=== PATIENT | male | born 1950 | race Caucasian/White ===

== ENCOUNTER 2023-07-24 10:42 | Emergency (ER) | payer OTHER, SELFPAY ==
[2023-07-24] VITALS (15 sets, daily range): BP systolic 121–147; BP diastolic 62–85; PULSE 76–102; RESP 26; TEMP 36.8; O2SAT 85–96; BMI 28.2
--- NOTE | 2023-07-24 11:10 | ED.GENADULT ---
HPI - General Adult General Chief complaint: Shortness of Breath/Dyspnea Stated complaint: possible pneumonia Time Seen by Provider: 07/24/23 11:10 History of Present Illness HPI narrative: Patient reports shortness of breath, cough and congestion for one week and gradually worsening. He is out of breath walking 30 feet from triage and sits upright on cot . Sats are 85%. He is placed on 2L NC and comes to 92% after a few minutes. Endorses lightheadedness with activity. Denies COPD history but is a former smoker . 72-year-old man presenting to the emergency department concern shortness of breath. Cough as well. Increasingly short of breath over the last 2 days in particular but noticed this beginning a week maybe even 2 weeks ago. Significant other who accompanies him here today notes that she was his only sick contact recently diagnosed with imaged pneumonia. He is a former smoker he says as of 10 minutes ago; says he just can not smoke ?with this and ?. No known heart disease/heart failure and no weight changes noted. They note a fever recently of 98.8 but acknowledge that the thermometer is ?crappy?. No diagnosis of respiratory disease he says and does not take any medication for this. No pleuritic chest pain but has been experiencing a little lower abdominal discomfort with deep breath. Related Data Previous Rx's Medication Instructions Recorded amoxicillin 875 mg-potassium 1 tab PO BID 9 days #18 tabs 07/24/23 clavulanate 125 mg tablet azithromycin 250 mg tablet See Rx Instructions PO .COMPLEX #6 07/24/23 tabs ipratropium 0.5 mg-albuterol 3 mg 3 ml inhalation Q6H PRN #90 mL 07/24/23 (2.5 mg base)/3 mL nebulization soln Allergies Allergy/AdvReac Type Severity Reaction Status Date / Time No Known Drug Allergies Allergy Verified 07/24/23 10:59 Review of Systems Status of ROS: Reports: 6 or more systems reviewed and unremarkable except as noted in History and below [facility] Social History Smoking Status: Current every day smoker How often do you have a drink containing alcohol: never AUDIT-C Alcohol total score: 0 Non-prescribed substance use: denies use Exam Narrative: Exam Narrative: Pleasant. A little hard of hearing. Skin is warm and dry. No lower extremity edema. Is well-perfused. Breath sounds throughout. No wheeze. Mild coarseness generally to his lung sounds. Heart is distant and in a regular rate and rhythm. Abdomen is soft protuberant abdomen. He is mildly sore to palpation without mass or peritoneal signs in the left lower abdomen. Const: Vital Signs, click to edit/add: Vital Signs - 24 hr 07/24/23 10:59 07/24/23 11:05 07/24/23 11:15 Temperature 98.2 F Pulse Rate 88 Pulse Rate [Pulse Oximeter] 92 Respiratory Rate 26 H Blood Pressure 121/63 Blood Pressure [Ri ght Upper Arm] 147/85 H Pulse Oximetry 85 L 92 89 Oxygen Delivery Me thod Room Air Nasal Cannula Oxygen Flow Rate 2 Documenting provider has reviewed patient's vital signs: yes Course Vital Signs Vital signs: Initial Vital Signs Temperature 98.2 F 07/24/23 10:59 Temperature Source Temporal Artery Scan 07/24/23 10:59 Pulse Rate 92 07/24/23 10:59 Respiratory Rate 26 H 07/24/23 10:59 Blood Pressure 147/85 H 07/24/23 10:59 Blood Pressure Mean 105 07/24/23 10:59 Pulse Oximetry 85 L 07/24/23 10:59 Oxygen Delivery Method Room Air 07/24/23 10:59 Vital Signs Temperature 98.2 F 07/24/23 10:59 Pulse Rate 92 07/24/23 10:59 Respiratory Rate 26 H 07/24/23 10:59 Blood Pressure 147/85 H 07/24/23 10:59 Pulse Oximetry 85 L 07/24/23 10:59 Oxygen Delivery Method Room Air 07/24/23 10:59 Temperature 98.2 F 07/24/23 10:59 Pulse Rate 92 07/24/23 15:30 Respiratory Rate 26 H 07/24/23 10:59 Blood Pressure 145/62 H 07/24/23 12:02 Pulse Oximetry 92 07/24/23 15:30 Oxygen Delivery Method Nasal Cannula 07/24/23 11:05 Oxygen Flow Rate 2 07/24/23 11:05 Medications Administered Medications: Discontinued Medications Generic Name Dose Route Start Last Admin Trade Name Freq PRN Reason Stop Dose Admin Albuterol/Ipratropium 1 neb 07/24/23 12:29 07/24/23 12:37 Iprat-Albut 0.5-2.5 Mg/3 Ml Neb IH 07/24/23 12:30 1 neb ONCE ONE Administration Sodium Chloride 1,000 mls @ 1,000 mls/hr 07/24/23 13:51 07/24/23 15:17 0.9 % Sodium Chloride 1000 Ml IV 07/24/23 14:50 Infused .Q1H ONE Infusion Ceftriaxone Sodium 1 gm/ 100 mls @ 200 mls/hr 07/24/23 15:04 07/24/23 15:54 Sodium Chloride IVPB 07/24/23 15:05 Infused ONCE ONE Infusion Medical Decision Making MDM Narrative Medical decision making narrative: Pending at this time is triple swab. Prior to seeing patient did request chest x-ray. Does not sound like gets regular care. Pending this would do further workup. May need to be hospitalized for oxygen needs. DuoNeb? One-view chest reviewed by me looks like might be some light infiltrate in the right middle lung area. Given nasal cannula oxygen improving oxygen saturations into low 90s. Did try DuoNeb with minimal reported change in symptoms. CRP particularly elevated with normal white count. D-dimer also moderately elevated maybe driven by pneumonia/CRP elevation. I would suspect pneumonia still the issue. Not wheezy really for COPD exacerbation and duo nebs with minimal effect. I think though will need to look further for potential PE. IV contrasted CTA ordered. I did review these images. Over-read by radiology it confirming multifocal infiltrates. No PE. Pulmonary nodule also noted in the right lung base :?1950 Study:?CT-Chest PE 95CC ISOVUE 370-07/24/2023 2:31:28 PM Ordering Physician:VALE Final Report: Indication: Hypoxia, cough and elevated D-dimer Technique: Volumetric multidetector CT images of the chest were obtained after the administration of IV contrast. 95 cc Isovue 370 low osmolar intravenous contrast Comparison: None available. Findings: The thoracic inlet and thyroid gland are unremarkable. The thoracic aorta is nonaneurysmal. There is no central filling defect to suggest pulmonary embolism. There are mildly reactive mediastinal and hilar lymph nodes. There is moderate central bronchial thickening with mucoid impaction of the lajmx-fogclne-wdxv-left lower lobe bronchi. There is mild centrilobular and paraseptal emphysematous change of the upper greater than lower lobes with basilar atelectasis and parenchymal scarring. There is developing dense airspace opacity in the ovlzy-dttimum-zjbx-left lung bases. Demonstration of a 6.8 millimeter pulmonary nodule in the peripheral right lung base seen on series 9, image 33. The partially visualized upper abdominal viscera are within normal limits. The thoracic vertebral body heights remain intact alignment without significant degenerative change or acute osseous abnormality. Impression: Moderate central bronchial thickening with mucoid impaction of the lower lobe bronchi with associated developing airspace opacities in the qwbpb-gifzmqt-kase-left lower lobes commensurate with developing multifocal infiltrates. Did give g of Rocephin in the emergency department and was anticipating admission. Mr. Messer clearly did prefers to go home; I do have concerns of bounce back/worsening. [facility] Ambulated before departure at 88-90% on room air. Anticipating Augmentin and azithromycin outpatient. Will make some DuoNebs available if needed as well. Spouse does have nebulizer. Refresh with our tubing and neb cup use here today. Does have evidence of COPD/emphysema on CT imaging. Needs sooner than later follow-up also for this pulmonary nodule particularly in the setting of smoking. See patient discharge plan for further discussion Lab Data Lab results reviewed: Yes I reviewed the patient's lab results Labs: Lab Results 07/24/23 07/24/23 Range/Units 11:06 12:24 WBC 9.29 (4.50-11.00) K/uL RBC 4.93 (4.30-5.90) m/uL Hgb 13.9 (13.5-17.5) gm/dL Hct 42.7 (37.0-53.0) % MCV 87 (80-100) fL MCH 28 (26-34) pg MCHC 33 (32-36) gm/dL RDW Coeff of Eusebia 14.3 (11.5-15.5) % Plt Count 143 (140-440) K/uL Neut % (Auto) 80.3 H (42.0-72.0) % Lymph % (Auto) 6.8 L (20-44) % [place] % (Auto) 12.7 H (0.0-11.0) % Eos % (Auto) 0.0 (0.0-7.0) % Baso % (Auto) 0.1 (0.0-3.0) % Neut # (Auto) 7.50 H (1.7-7.0) K/uL Lymph # (Auto) 0.60 L (0.90-2.90) K/uL [place] # (Auto) 1.20 H (0.00-0.90) K/UL Eos # (Auto) 0.00 (0.00-0.50) K/uL Baso # (Auto) 0.01 (0.00-0.30) K/uL Abs Immat Gran (auto) 0.01 (0.00-0.30) K/uL Imm/Tot Granulo (auto) 0.1 % D-Dimer Quant (PE/DVT) 1.26 H (0.00-0.50) ug/ml VBG pH 7.362 (7.32-7.43) VBG pCO2 48 (40-50) mmHG VBG pO2 < 30.1 (25-47) mmHG VBG HCO3 27 (21-28) mmol/L Sodium 134 L (135-149) mmol/L Potassium 4.0 (3.6-5.1) mmol/L Chloride 104 (96-114) mmol/L Carbon Dioxide 26 (20-32) mmol/L Anion Gap 4 L (7-15) mEq/L BUN 17 (7-30) mg/dL Creatinine 0.9 (0.5-1.5) mg/dL Estimated Creat Clear 71.13 Estimated GFR 90 ml/min Glucose 106 (60-115) mg/dL Calcium 8.4 (8.4-10.6) mg/dL Total Bilirubin 0.6 (0.1-1.5) mg/dL Direct Bilirubin 0.2 (0.0-0.5) mg/dL AST 23 (12-35) U/L ALT 11 (4-50) U/L Alkaline Phosphatase 72 (40-150) U/L C-Reactive Protein 14.9 H (0.5-1.0) mg/dL NT-Pro-B Natriuret Pep 658 pg/mL Total Protein 7.2 (6.0-8.3) g/dL Albumin 3.9 (3.3-5.0) g/dL Ethyl Alcohol < 0.01 L (0.01-0.03) % SARS-CoV-2 (PCR) Negative SARS-CoV-2 (Negative) Influenza Type A (PCR) Negative PCR FLU A (Negative) Influenza Type B (PCR) Negative PCR FLU B (Negative) RSV (PCR) Negative PCR RSV (Negative) Discharge Plan Discharge Clinical Impression: Community acquired pneumonia, COPD (chronic obstructive pulmonary disease), Pulmonary nodule Patient Disposition: Home w/ Parent or Adult Condition: Stable Additional Instructions: Stay well-hydrated. I would like you to take this nebulizer cup and tubing with you. I would like you to nebulized DuoNebs 3 to 4 times a day over the next 3 days. Please follow-up for further evaluation of your lung function. This would likely involve some graphing of your lung function and some inhaler medication to limit further damage as I anticipate you receiving a COPD diagnosis. Please do what you can to quit smoking. Return for increasing weakness, persistent and increasing shortness of breath, new fever. Prescriptions: New amoxicillin-pot clavulanate 875-125 mg tablet 1 tab PO BID 9 Days Qty: 18 0RF ipratropium-albuterol 0.5 mg-3 mg(2.5 mg base)/3 mL solution for nebulization 3 ml inhalation Q6H PRNQty: 90 0RF azithromycin 250 mg tablet See Rx Instructions .ROUTE .COMPLEX Qty: 6 0RF Rx Instructions: For 250 mg dose pack: take 500 mg today (day 1), then 250 mg for 4 days (days 2-5) Follow Up/Referrals: Provider,Not a Local [Primary Care Provider] - Stand Alone Forms: Skipjump Info Instructions
--- NOTE | 2023-07-24 11:12 | XR_ITS ---
Patient: RASHMI SHEFFIELD Facility:?[facility] Patient ID:?[id number] Site Patient ID:?[id number]. Site :?[id number] Study:?XRay-Chest Portable-07/24/2023 11:34:31 AM Ordering Physician:Checo Nova Final Report: Indication: Dyspnea Comparison: None available. Technique: Single AP view chest Findings: There is hyperinflation and chronic interstitial change. There is questionable airspace opacity within the medial right lung base. The left hemithorax is clear. There is no pneumothorax. The cardiac silhouette is mildly prominent. The bony thorax is grossly intact. Impression: Minimal airspace opacity in the medial right lung base likely representing infiltrate versus atelectasis. Mild chronic interstitial changes. Dictated by Tripp Eubanks MD @ 07/24/2023 12:07:51 PM Signed by:?Tripp Eubanks MD @07/24/2023 12:07:51 PM (Electronic Signature)
--- OUTSIDE RECORDS SUMMARY | 2023-07-24 11:47 | XMS_ITS | Referral Summary ---
Author Name Unknown Organization [facility] Address [address] [place] [address] Care Team Providers Care Pattern Lease Inspector Name Role Phone [facility] Primary Care Provider Allergies No known active allergies Social History Tobacco Use Types Packs/Day Years Used Date Smoking Tobacco: Never Assessed Adolescent Education Answer Date Record ed Getting School Help Needed Not on file 12/27 Sex and Gender Information Value Date Recorded Sex Assigned at Not on file Gender Identity Not on file Sexual Orientation Not on file Last Filed Vital Signs Vital Sign Reading Time Taken Comments Blood Pressure 130/77 01/02/2022 12:00 PM CDT Pulse 64 01/02/2022 12:00 PM CDT Temperature 36.8 ??C (98.3 ??F) 01/02/2022 9:35 AM CD T Respiratory Rate 16 01/02/2022 9:35 AM CDT Oxygen Saturation 93% 01/02/2022 11:57 AM CDT Inhaled Oxygen Concentration - - Weight - - Height - - Body Mass Index - - Plan of Treatment Not on file Procedures Procedure Name Priority Date/Time Associated Diagnosis Comments BASIC METABOLIC PANEL STAT 01/02/2022 9:53 AM CDT from Last 3 Months or Most Recently Relevant to Health Maintenance Results * (ABNORMAL) Basic metabolic panel (01/02/2022 9:53 AM CDT) Sodium 137 136 - 145 mmol/L 01/02/2022 10:24 AM CDT LABORATORY Potassium 4.3 3.4 - 5.3 mmol/L 01/02/2022 10:24 AM CDT LABORATORY Chloride 101 98 - 107 mmol/L 01/02/2022 10:24 AM CDT LABORATORY Carbon Dioxide (CO2) 27 22 - 29 mmol/L 01/02/2022 10:24 AM CDT LABORATORY Anion Gap 9 7 - 15 mmol/L 01/02/2022 10:24 AM CDT LABORATORY Urea Nitrogen 14.9 8.0 - 23.0 mg/dL 01/02/2022 10:24 AM CDT LABORATORY Creatinine 1.11 0.67 - 1.17 mg/dL 01/02/2022 10:24 AM CDT LABORATORY Calcium 9.5 8.8 - 10.2 mg/dL 01/02/2022 10:24 AM CDT LABORATORY Glucose 120(H) 70 - 99 mg/dL 01/02/2022 10:24 AM CDT LABORATORY GFR Estimate 70 >60 mL/min/1.7 3m2 01/02/2022 10:24 AM CDT LABORATORY Comment:Effective March 072020 eGFRcr in adults is calculated using the 2020 CKD-EPI creatinine equation which includes age and gender (Fer et al., NEJM, DOI: 10.1056/FYHEqf8560130) Blood STRUCTURE OF RIGHT UPPER LIMB / Unknown Venipuncture / Unknown 01/02/2022 9:53 AM CDT 01/02/2022 10:04 AM CDT Alan Gimenez MD LAB - BLOOD ORDER [facility] [address] Lab (1st floor, no room number) [place] [address], [facility] [phone] from Last 3 Months or Most Recently Relevant to Health Maintenance Care Teams Pattern Lease Inspector Relationship Specialty Start Date End Date [facility], [facility] [address] [place] [address] PCP - General 01/02/22
--- OUTSIDE RECORDS SUMMARY | 2023-07-24 11:47 | XMS_ITS | Clinical Summary ---
Author Name Unknown Organization Media Address [id number] [place] [address] Care Team Providers Care Web Specialist Name Role Phone [facility] Primary Care Provider Allergies No known active [...] Mass Index - - Plan of Treatment Health Maintenance Due Date Last Done Comments ADVANCE CARE PLANNING 1950 ANNUAL REVIEW OF HM ORDERS 1948 CT COLONOGRAPHY 1950 FIT 1950 FLEX SIG 1950 sDNA (Cologuard) 1950 COLONOSCOPY 1958 COLORECTAL CANCER SCREENING 1958 HEPATITIS C SCREENING 1966 LIPID 1988 RSV VACCINE ( & 60+) (1 - 1-dose 60+ series) 2008 FALL RISK ASSESSMENT 2013 MEDICARE ANNUAL WELLNESS VISIT 2013 ZOSTER IMMUNIZATION (3 of 3) 01/21/2022 11/26/2021, 01/23/2012 COVID-19 Vaccine (2 - season) 2022 05/29/2021 INFLUENZA VACCINE (#1) 2022 6, 12/15/2012, 01/23/2012, Additional history exists PHQ-2 (once per calendar year) 2023 GLUCOSE 01/02/2025 01/02/2022, 01/02/2022 DTAP/TDAP/TD IMMUNIZATION (4 - Td or Tdap) 09/29/2027 09/28/2017, 08/06/2016, 02/01/2007 Pneumococcal Vaccine: 65+ Years Completed 08/07/2017, 08/06/2016, 03/07/2010 HPV IMMUNIZATION Aged Out No longer e ligible based on patient's age to complete this topic IPV IMMUNIZATION Aged Out No longer e ligible based on patient's age to complete this topic MENINGITIS IMMUNIZATION Aged Out No l onger eligible based on patient's age to complete this topic RSV MONOCLONAL ANTIBODY Aged Out No l onger eligible based on patient's age to complete this topic Procedures Procedure Name Priority Date/Time Associated Diagnosis Comments BASIC METABOLIC PANEL STAT 01/02/2022 9:53 AM CDT from Last 3 Months or Most Recently Relevant to Health Maintenance Results * (ABNORMAL) Basic metabolic panel (01/02/2022 9:53 AM CDT) Sodium 137 136 - 145 mmol/L 01/02/2022 10:24 AM CDT LABORATORY Potassium 4.3 3.4 - 5.3 mmol/L 01/02/2022 10:24 AM CDT [facility] Chloride 101 98 - 107 mmol/L 01/02/2022 10:24 AM CDT [facility] Carbon Dioxide (CO2) 27 22 - 29 mmol/L 01/02/2022 10:24 AM CDT [facility] Anion Gap 9 7 - 15 mmol/L 01/02/2022 10:24 AM CDT [facility] Urea Nitrogen 14.9 8.0 - 23.0 mg/dL 01/02/2022 10:24 AM CDT [facility] Creatinine 1.11 0.67 - 1.17 mg/dL 01/02/2022 10:24 AM CDT [facility] Calcium 9.5 8.8 - 10.2 mg/dL 01/02/2022 10:24 AM CDT LABORATORY Glucose 120(H) 70 - 99 mg/dL 01/02/2022 10:24 AM CDT LABORATORY GFR Estimate 70 >60 mL/min/1.7 3m2 01/02/2022 10:24 AM CDT LABORATORY Comment:Effective March 072020 eGFRcr in adults is calculated using the 2020 CKD-EPI creatinine equation which includes age and gender (Fer et al., NEJ, DOI: 10.1056/TBXFsd2328353) Blood STRUCTURE OF RIGHT UPPER LIMB / Unknown Venipuncture / Unknown 01/02/2022 9:53 AM CDT 01/02/2022 10:04 AM CDT Alan Gimenez MD LAB - BLOOD ORDER [facility] Acute [facility] Lab [address] Lab (1st floor, no room number) [place] [address] [phone] from Last 3 Months or Most Recently Relevant to Health Maintenance Care Teams Web Specialist Relationship Specialty Start Date End Date [facility], [place] [address] PCP - General 01/02/22
--- OUTSIDE RECORDS SUMMARY | 2023-07-24 11:47 | XMS_ITS | Clinical Summary ---
Author Name Unknown Organization [facility] Address [place], [place] [address] Care Team Providers Care [employer] Name Role Phone Pcp, No Primary Care Provider Unavailabl e Allergies No known active allergies Medications Medication Sig Dispensed Refills Start Date End Date Status ASPIRIN 81 MG TAB, DELAYED RELEASE take 1 tablet (81mg) by oral route once daily 0 06/25/2005 Active LIPITOR 80 MG TAB take 1 tablet (80mg) by oral route once daily 30 5 09/23/2005 Active DYAZIDE 37.5 MG-25 MG CAP take 1 capsule by oral route once daily 0 05/08/2006 Active FISH OIL 1,000 MG-300 MG CAP 1 cap daily 0 05/18/2006 Active FOLIC ACID 1 MG TAB 2 tabs daily 0 05/18/2006 Act sepideh VITAMIN C 250 MG TAB 1 tab daily 0 05/18/2006 Active PLETAL 100 MG TABIndications:Ethel pheral vascular disease, unspecified (HC) Take 1 tablet by mouth 2 times a day 60 12 09/22/2006 Active ZETIA 10 MG TAB take 1 tablet (10 mg) by oral route once daily 0 11/05/2006 Active durable medical equipment (DME)Indications:Pe ripheral vascular disease (HC),Type 2 diabetes mellitus with complication, unspecified whether jail insulin use,PAD (peripheral artery disease) (HC) Extra depth diabetic shoes, 3 pair tri layer accommodative inserts 1 Each 01/28/2018 Active metFORMIN (GLUCOPHAGE) 1,000 mg tablet TAKE ONE-HALF TABLET BY MOUTH AT BEDTIME FOR ELEVATED FASTING GLUCOSE -TAKE WITH FOOD 12/18/2020 Active buPROPion (WELLBUTRIN XL) 300 mg Extended-Release tablet TAKE ONE TABLET BY MOUTH EVERY MORNING FOR MOOD. *NEW DOSE* 12/18/2020 Active rosuvastatin (CRESTOR) 40 mg tablet TAKE ONE-HALF TABLET BY MOUTH EVERY DAY FOR CHOLESTEROL (DO NOT CONVERT) 10/12/2020 Active potassium chloride (KLOR-CON 10; K-TAB) 10 mEq Controlled-Release tablet Take 10 mEq by mouth once daily. 06/26/2020 Active calcium carbonate-vitamin D 250 mg-3.125 mcg (125 unit) tab Take 1 Tablet by mouth once daily with a meal. 11/26/2020 Active mirtazapine (REMERON) 30 mg tablet Take 30 mg by mouth at bedtime. 12/18/2020 Active vit C,J-Ib-vuaxz-lutein -zeaxan (PreserVision AREDS-2) capsule Take 1 Tablet by mouth once daily. 11/15/2020 Active Active Problems Problem Noted Date Diagnosed Date Bilateral pseudophakia 04/13/2023 Posttraumatic stress disorder 06/03/2021 Nicotine dependence 06/03/2021 Major depressive disorder 06/03/2021 Diabetic neuropathy 06/03/2021 Abdominal aortic aneurysm without rupture 2021 Overview: Nov 09, 2020 Entered By: SHAYY COHEN Comment: 3.5cm AAA in 2020, increased from 3.2cm over 7yrs, needs surveillance imaging in 2023 Nonexudative age-related macular degeneration Hypertension 06/03/2021 Myopia of both eyes with astigmatism and presbyo martha 04/30/2021 Onychomycosis 01/28/2018 Peripheral vascular disease 01/28/2018 Overview: Aug 02, 2007 Entered By: HOLA EATON Comment: R iliac stent x 2006 [facility] Dr[address] [place] 2020 Entered By: CATHERINE ESTRELLA Comment: 04/20: Balloon angioplasty L EIA, profunda, SFAJul 2020 Entered By: CATHERINE ESTRELLA Comment: 2013: L SFA angioplasty, left TRACY stent, R TRACY stent Type 2 diabetes mellitus with complication 01/28 Coronary atherosclerosis of unspecified type of vessel, [place] or graft 05/18/2006 Overview: Coronary angiogram in 10/2004. Mild disease. Peripheral vascular disease, unspecified 005 Overview: Lower Ext Angiogram in 2004 Severe dis in bilaterl femoral areas CHEST PAIN 03/15/2001 Hyperlipidemia 03/15/2001 ROTATOR CUFF SPRAIN 07/22/2000 TOBACCO USE 06/24/2000 Immunizations Name Administration Dates Next Due Influenza Virus, Unspecified 12/15/2012, 01/23/2012,01/15/2011,2009,01/12/2009,03/14/2008,02/01/2007 Influenza, High-dose Inactivated 01/29/2016 Pneumococcal Poly,23-Valent (Pneumovax) 08/07/2017 Pneumococcal conj 13-Valent (Prevnar 13) 08/06/2016 Pneumococcal, Unspecified 03/07/2010 TD, UNSPECIFIED 02/01/2007 Tdap 09/28/2017,08/06/2016 Zoster (Zostavax-ZVL, live) 01/23/2012 Family History Medical History Relation Name Comments Diabetes Mother Other Mother glaucoma Genetic Other mother passed a way with congestive heart failure ~uncle was in earlier 60's when had first [place] ~father 2 years ago with emphysema ~mother-blindness Relation Name Status Comments Mother Other Social History Tobacco Use Types Packs/Day Years Used Date Smoking Tobacco: Every Day Cigarettes Smokeless Tobacco: Never Tobacco Cessation:Ready to Q uit: Yes; Counseling Given: Yes Alcohol Use Standard Drinks/Week Comments No 0 (1 standard drink = 0.6 oz pur e alcohol) Social Connections Answer Date Recorded Frequency of Communication with Friends and Fami ly Not on file 06/03/2021 Financial Resource Strain Answer Date R ecorded Difficulty of Paying Living Expenses Not on file 06/03/2021 Difficulty of Paying Living Expenses Not on file 06/03/2021 Sex and Gender Information Value Date Recorded Sex Assigned at Not on file Gender Identity Not on file Sexual Orientation Not on file Obstetrics History Last Filed Vital Signs Vital Sign Reading Time Taken Comments Blood Pressure 110/60 06/03/2021 11:00 AM FACILITY SPECIALIST Pulse 74 06/03/2021 11:00 AM FACILITY SPECIALIST Temperature 36.9 ??C (98.5 ??F) 11/06/2006 8:00 AM CD T Respiratory Rate 16 11/06/2006 8:00 AM CDT Oxygen Saturation 97% 11/06/2006 8:00 AM CDT Inhaled Oxygen Concentration - - Weight 94.3 kg (208 lb) 06/03/2021 11:00 AM FACILITY SPECIALIST Height 184.5 cm (6' 0.64) 06/03/2021 11:00 AM C Body Mass Index 27.72 06/03/2021 11:00 AM FACILITY SPECIALIST Plan of Treatment Upcoming Encounters Date Type Department Care Team (Late st Contact Info) Description 10/12/2023 11:40 AM CDT Office Visit [facility] [id number] [place], [place] [phone] [place] [address] [address] [place], [place] [phone] Health Maintenance Due Date Last Done Comments Depression screening for age 12+ 1960 Hepatitis C screening for ag e 18-79 1966 Colonoscopy through age 75 1993 Lipids for age 45-75 04/30/2011 04/30/2006, 01/20/2005, 08/14/2004, Additional history exists Zoster (shingles) series for age 50+ (2 of 3) 03/19/2012 01/23/2012 Medicare Wellness for age 65+ 2013 BMI (ht and wt on same day) for age 18+ 06/03/2022 06/03/2021 COVID-19 vaccine series ( season) 2022 05/29/2021 Influenza for age 65+ 12/06/2023 01/29/2016 , 12/15/2012, 01/23/2012, Additional history exists Tetanus booster 09/29/2027 09/28/2017, 0506/2016, 02/01/2007 Pneumococcal series for age 65+ Completed 08/07/2017, 08/06/2016, 03/07/2010 Tdap Completed 09/28/2017, 08/06/2016 Procedures Procedure Name Priority Date/Time Associated Diagnosis Comments LIPID PANEL Routine 04/30/2006 8:37 AM FACILITY SPECIALIST Peripheral Vascular Disease (Hc) from Last 3 Months or Most Recently Relevant to Health Maintenance Results * LIPID PANEL (04/30/2006 8:37 AM FACILITY SPECIALIST) CHOLESTEROL,TOTAL 189 110 - 199 mg/dL [facility] TRIGLYCERIDES 57 40 - 149 mg/dL [facility] HDL CHOLESTEROL 60 >40 mg/dL [facility] CHOL/HDL RATIO 3.[address] [facility] LDL CHOLESTEROL 118 <131 mg/dL [facility] PATIENT STATUS Fasting [facility] Blood specimen (specimen) BLOOD SPECIMEN / Unknown 04/30/2006 8:37 AM FACILITY SPECIALIST 04/30/2006 8:36 AM FACILITY SPECIALIST Manuel Jensen MD CHEMISTRY [facility] INTERNAL ZIP [id number] [place] [id number] from Last 3 Months or Most Recently Relevant to Health Maintenance Advance Directives * Full Code (Latest Code Status on File) Date Activated Date Inactivated Comments 11/05/2006 9:40 AM 11/06/2006 2:12 PM * Full Code Date Activated Date Inactivated Comments 11/05/2006 5:59 AM 11/05/2006 9:40 AM Care Teams [employer] Relationship Specialty Start Date End Date Pcp, No . PCP - General 01/18/18
[2023-07-24 11:48] LABS: PCR FLU A Negative PCR FLU A (Negative); PCR FLU B Negative PCR FLU B (Negative); PCR RSV Negative PCR RSV (Negative); SARS PCR* Negative SARS-CoV-2 (Negative)
--- OUTSIDE RECORDS SUMMARY | 2023-07-24 11:48 | XMS_ITS | Encounter Summary ---
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 72 in [182.9 cm] (11/26/2021 12:47) BMI: 27.9 Pain: 3 (02/18/2022 09:10) Medications: Active Outpatient Medications (including Supplies): BUPROPION HCL 300MG 24HR SA TAB TAKE ONE TABLET BY MOUTH ACTIVE EVERY MORNING FOR MOOD CALCIUM 250MG/VITAMIN D 125 UNT TAB TAKE 2 TABLETS BY ACTIVE MOUTH THREE TIMES A DAY FOR BONES MIRTAZAPINE 30MG TAB TAKE ONE AND ONE-HALF TABLETS BY ACTIVE MOUTH AT BEDTIME FOR DEPRESSION MULTIVIT/OPHTH AREDS2/LUTE/ZEAX CAP/TAB TAKE 1 CAP/TAB BY ACTIVE MOUTH TWICE A DAY FOR MACULAR DEGENERATION ROSUVASTATIN CA 40MG TAB TAKE ONE-HALF TABLET BY MOUTH ACTIVE (S) EVERY DAY FOR CHOLESTEROL (DO NOT CONVERT) Non-VA ASPIRIN 81MG EC TAB 81 MG MOUTH DAILY ACTIVE Non-VA FISH OIL 1000MG (500MG DHA/EPA) CAP 1 GM MOUTH ACTIVE EVERY DAY Non-VA FOLIC ACID 1MG TAB 1 MG MOUTH TWICE A DAY ACTIVE Patient verified his/her medication list. Patient reports taking current medication list as prescribed: Yes Side effects: Yes New Non-VA/Over the Counter/Herbal Medications: None Patient instructed to keep a copy of his/her medication list and to protect this personal and private medical information. Alcohol use: No Alcohol Use Screen (AUDIT-C): Alcohol Screen: SCREEN FOR ALCOHOL (AUDIT-C) An alcohol screening test (AUDIT-C) was negative (score=0). 1. How often did you have a drink containing alcohol in the past year? Never 2. How many drinks containing alcohol did you have on a typical day when you were drinking in the past year? Response not required due to responses to other questions. 3. How often did you have six or more drinks on one occasion in the past year? Response not required due to responses to other questions. Nursing Annual Screening: Fall History Screen During the past 12 months, have you had any falls? Patient does not report any falls in the past 12 months. MEDICATIONS: Patient is on one of the following medication classes: Antihypertensives, Antidepressants, Antipsychotics, Diuretics, or Controlled substance medication used for pain. FALL RISK ADVICE: Fall Risk Advice provided. Handout entitled Fall Prevention At Home reviewed and given to patient and/or significant other. Script Talk Screen Are you able to read your prescription bottles with your glasses, magnifiers or other aids? Yes or patient not taking any prescriptions. Skin Screen Patient reports any current pressure ulcers, a history of pressure ulcers, or a wound from a medical associate or Patient is bed-confined or a wheelchair-user or Patient requires assistance to transfer/change position No, Skin Screen is Negative Home Abuse/Violence Screen Is your home free of abuse and violence? Yes Outpatient Nutrition Screen Body Mass Index (BMI)= 27.9 [place]: Collection DT Specimen Test Name Result Units Ref Range 07/11/2021 09:53 BLOOD HEMOGLOBIN A1C 6.1 H % 4.0 - 6.0 [place] Hgb A1C: No data available [place] Hgb A1C: No data available Point of Care Hgb A1C: POC HGB A1C____ Is patient's BMI less than 18.5? No Does patient have swallowing, coughing, or chewing problems affecting oral intake? No Has patient experienced unplanned weight loss or gain greater than 10 pounds over the last 2 months? No Is patient's Hgb A1C (Glycosylated Hemoglobin) greater than 9.5? Information not available Is patient receiving Total Parenteral Nutrition (TPN) or Tube Feedings? No Patient Health Education Screen BARRIERS/SPECIAL NEEDS: No barriers identified PREFERRED STYLE OF LEARNING: Watching something Listening Reading Client Assistive Service (EDITH) Screen Does the patient require assistance with outpatient visit? Cecilia /umesh/ SHANA CHADWICK GENETIC COORDINATOR STAFF NURSE Signed: 12/16/2022 13:03 SHANA CHADWICK [facility]
--- OUTSIDE RECORDS SUMMARY | 2023-07-24 11:48 | XMS_ITS | Encounter Summary ---
Author Name [facility] Affairs Organization [facility] Address [address] [place] [address] Support Name Relationship Address Phone OSIRIS SHEFFIELDHUYEN Next of Kin [address] [place] [address] RACHAEL SHEFFIELD Emergency Contact [address] [place] [address] Insurance Providers: All historical and [...] Policy Yancey MEDICARE (WNR) MEDICARE (M) PART B May 07, 2009 PART B [id number] [phone] RASHMI SHEFFIELD PATIENT MEDICARE (WNR) MEDICARE (M) PART A May 07, 2009 PART A [id number] [phone] RASHMI SHEFFIELD PATIENT Selected Encounter This section includes the information on record at [place] for the Encounter. Date/Time Encounter Type Encounter Description Reason Provider Source May 28, 2023 09:30 AM MTMS BY PHARM JONNATHAN 15 MIN TELEPHONE PRIMARY CARE ICD-10-CM F17.210 Nicotine dependence, cigarettes, uncomplicated ALVARADO CARLSON IHFaizan Encounter Template Text not used by [place] Assessments - Encounter Diagnoses This section includes the primary and secondary diagnoses documented for the Encounter. Date/Time Primary/Secondary Diagnosis Diagnosis Name Provider Source May 28, 2023 09:30 AM PRIMARY Nicotine dependence, cigarettes, uncomplicated STEFFANIE PATEL [facility] Social History: Smoking Status (Most current) and Tobacco Use (All prior to encounter date) This section includes the most current, and the historical, smoking and tobacco- related health factors from the [place] facility where the Encounter took place. Current Smoking Status This section includes the most current smoking, or tobacco-related health factor, from the [place] facility where the Encounter took place. Date/Time Current Smoking Status Comment Addy ity Jun 09, 2022 01:00 PM VA-TOBACCO USE [address] [facility] Tobacco Use History This section includes a history of the smoking, or tobacco-related health factors, that were collected on or before the date of the Encounter. The data comes from the [place] facility where the Encounter took place. Date/Time Smoking Status/Tobac co Use Comment Facility Jun 09, 2022 01:00 PM VA-TOBACCO USE ADVICE [facility] Jun 09, 2022 01:00 PM VA-TOBACCO USE PAPER STRIPPER NO [facility] Jun 09, 2022 01:00 PM VA-TOBACCO USE MED NO [facility] Jun 09, 2022 01:00 PM VA-TOBACCO USE [place] [address] [facility] Jun 09, 2022 01:00 PM VA-TOBACCO USER EVERY DAY [facility] Jul 15, 2021 01:30 PM VA-TOBACCO USE < [address] [facility] Jul 15, 2021 01:30 PM VA-TOBACCO USE ADVICE [facility] Jul 15, 2021 01:30 PM VA-TOBACCO USE PAPER STRIPPER NO [facility] Jul 15, 2021 01:30 PM VA-TOBACCO USE MED NO [facility] Jul 15, 2021 01:30 PM VA-TOBACCO USE [place] [address] [facility] Jul 15, 2021 01:30 PM VA-TOBACCO USER EVERY DAY [facility] Dec 14, 2019 01:15 PM VA-TOBACCO FORMER USER [facility] Dec 14, 2019 01:15 PM VA-TOBACCO QUIT < [address] [facility] Dec 15, 2017 02:59 PM VA-TOBACCO DOESNT USE [place] [address] [facility] Dec 15, 2017 02:59 PM VA-TOBACCO USE > 1 [address]ESS THAN [address] [facility] Dec 15, 2017 02:59 PM VA-TOBACCO USE ADVICE [facility] Dec 15, 2017 02:59 PM VA-TOBACCO USE COU NSEL YES plan that he will discuss tob cessation therapy with therapist today [facility] Dec 15, 2017 02:59 PM VA-TOBACCO USE MED NO [facility] Dec 15, 2017 02:59 PM VA-TOBACCO USER EVERY DAY [facility] Jun 30, 2017 09:17 AM CURRENT TOBACCO USER [facility] Jun 05, 2016 02:51 PM CURRENT TOBACCO USER [facility] Dec 07, 2013 02:06 PM CURRENT TOBACCO USER [facility] Dec 15, 2012 02:15 PM CURRENT TOBACCO USER [facility] Jan 23, 2012 01:13 PM CURRENT TOBACCO USER [facility] Jan 15, 2011 09:09 AM CURRENT TOBACCO USER [facility] Jan 17, 2010 02:05 PM CURRENT TOBACCO USER [facility] Jan 12, 2009 11:39 AM CURRENT TOBACCO USER [facility] Mar 14, 2008 03:02 PM CURRENT TOBACCO USER [facility] Apr 19, 2007 07:41 AM CURRENT TOBACCO USER [facility] Jul 14, 2006 09:11 AM CURRENT TOBACCO USER [facility] Advance Directives: All historical and current Section Date Range: From patient's date of to the date document was created. This section includes ALL of a patient's completed or amended [place] Advance and Rescinded Directives. The entries below indicate that a directive exists for the patient, but an actual copy is not included with this document. The data comes from all [place] facilities. Date Advance Directives Provider Source Feb 01, 2007 ADVANCE DIRECTIVE JOHN MARIEE [facility] Encounter Notes: All associated encounter notes This section contains the clinical notes associated to the Encounter. Date/Time Encounter Note(s) Provider Source May 28, 2023 01:12 PM SMOKING CESSATION GROUP COUNSELING NOTE: LOCAL TITLE: TOBACCO TREATMENT TEAM NOTE STANDARD TITLE: SMOKING CESSATION GROUP COUNSELING NOTE DATE OF NOTE: MAY 28, 2023@13:12 ENTRY DATE: MAY 28, 2023@13:12:49 AUTHOR: JEANNE PATEL COSIGNER: URGENCY: STATUS: COMPLETED TOBACCO TREATMENT TEAM NOTE Has ADDENDA Visit Type: Phone Patient is a 72 year old Hartley contacted for tobacco cessation follow-up. Medical history is notable for CAD/PAD w/ significant claudication, T2DM (diet controlled), depression, HTN. Subjective reports that he is doing good. He states that he has been successful in smoking cessation and has not smoked in a month. He states that since he has not needed it, he stopped taking varenicline two weeks ago. He further states that he still has some and will take it again if he feels that he needs to. He reports experiencing some cravings but has not noticed withdrawal symptoms. Tobacco use Report: - Current tobacco use: 6-7 cigarettes per day - Duration of use: Since teenage years - Previous quit attempts: o NRT patches o NRT lozenges o Bupropion (current for depression) o Varenicline (nausea) - Patient Goals: o Goal to quit smoking for health benefits o Not ready to set a quit date - Barriers to Cessation: o Unsuccessful prior quit attempts o Enjoys smoking/finds relaxing - Triggers to use: o First thing in the morning; usually has a cigarette within 15 minutes of waking up o Driving - Motivators: o Health benefits, particularly cardiovascular/PAD concerns - For Motivation: On a scale of 0-10, where 0 is not at all motivated and 10 is extremely motivated, how motivated are you to quit using tobacco now (or remain tobacco free)? 5/10; notes he likes to smoke, but knows he should quit for his health. - For Confidence: On a scale of 0-10, where 0 is not at all confident and 10 is extremely confident, how confident are you that you can quit using tobacco now (or remain tobacco free)? 5/10; notes history of unsuccessful quit attempts. - Additional Items: o Caffeine use: Coffee in AM; reviewed interaction between tobacco hydrocarbons and caffeine o Alcohol use: None, AUDIT-C of 0 o Seizure history: No o Dentition concerns: Has dentures MEDICATIONS: Active Outpatient Medications (including Supplies): Active Outpatient Medications Status 1) BUPROPION HCL 150MG 24HR SA TAB TAKE THREE TABLETS BY ACTIVE MOUTH EVERY MORNING FOR MOOD FOR MOOD 2) HYDROPHILIC (EQV EUCERIN) TOP CREAM APPLY TO AREAS OF ACTIVE DRY SKIN TOPICALLY EVERY DAY FOR MOISTURIZER IDEALLY WITHIN 3 MINUTES AFTER BATH OR SHOWER. 3) MIRTAZAPINE 30MG TAB TAKE ONE AND ONE-HALF TABLETS BY ACTIVE MOUTH AT BEDTIME FOR DEPRESSION 4) MULTIVIT/OPHTH AREDS2/LUTE/ZEAX CAP/TAB TAKE 1 ACTIVE CAP/TAB BY MOUTH TWICE A DAY FOR MACULAR DEGENERATION 5) NIACIN (SLO-NIACIN) 500MG TAB,SA TAKE ONE TABLET BY ACTIVE MOUTH EVERY DAY FOR HIGH CHOLESTEROL 6) ROSUVASTATIN CA 40MG TAB TAKE ONE-HALF TABLET BY ACTIVE MOUTH EVERY DAY FOR CHOLESTEROL (DO NOT CONVERT) 7) TRIAMCINOLONE ACETONIDE 0.1% CREAM APPLY THIN LAYER ACTIVE TOPICALLY TWICE A DAY FOR RASH FOR 2 TO 4 WEEKS UNTIL IMPROVED 8) VARENICLINE 1MG TAB TAKE ONE-HALF TABLET BY MOUTH ACTIVE EVERY DAY FOR 3 DAYS, THEN TAKE ONE-HALF TABLET TWICE A DAY FOR 4 DAYS, THEN TAKE ONE TABLET TWICE A DAY TO QUIT TOBACCO Active Non-VA Medications Status 1) Non-VA ASPIRIN 81MG EC TAB 81 MG MOUTH DAILY ACTIVE 2) Non-VA FISH OIL 1000MG (500MG DHA/EPA) CAP 1 GM MOUTH ACTIVE EVERY DAY 3) Non-VA FOLIC ACID 1MG TAB 1 MG MOUTH TWICE A DAY ACTIVE 11 Total Medications - Disease specific medication reconciliation completed today Vitals: Temperature: 97.7 F [36.5 C] (02/19/2023 12:54) Blood Pressure: 128/60 (02/19/2023 12:54) Pulse: 74 (02/19/2023 12:54) Respiration: 18 (02/19/2023 12:54) Pain: 0 (02/19/2023 12:54) Height: 72 in [182.9 cm] (02/19/2023 12:54) Weight: 208 lb [94.35 kg] (02/19/2023 12:54) BMI: 28.3 LABS: Basic Metabolic Panel SODIUM 139 (02/19/23) POTASSIUM 3.9 (02/19/23) CREATININE 1.0 (02/19/23) UREA NITROGEN 14 (02/19/23) GLUCOSE 104 H (02/19/23) CO2 25 (02/19/23) CHLORIDE 104 (02/19/23) EGFR (11/07) 12/14/20 @ 0921 66 CREATININE EGFR (CKD-EPI) 02/19/23 @ 1209 79 MAGNESIUM 1.8 (02/19/23) Collection DT Specimen Test Name Result Units Ref Range 02/19/2023 12:09 PLASMA CREATININE 1.0 mg/dL 0.7 - 1.2 08/15/2021 10:22 PLASMA CREATININE 1.1 mg/dL 0.7 - 1.2 07/11/2021 09:53 PLASMA CREATININE 1.1 mg/dL 0.7 - 1.2 02/19/2023 12:09 PLASMA .CREAT EGFR(CKD-E 79 Ref: >=60 08/15/2021 10:22 PLASMA .CREAT EGFR(CKD-E 71 Ref: >=60 07/11/2021 09:53 PLASMA .CREAT EGFR(CKD-E 71 Ref: >=60 CHOLESTEROL 179 (02/19/23) MEASURED LDL____ LDL CALCULATION 116 H (02/19/23) HDL 39 L (02/19/23) TRIGLYCERIDE____ Collection DT Spec HGBA1C 02/19/2023 12:09 BLOOD 5.6 07/11/2021 09:53 BLOOD 6.1 H 12/14/2020 09:21 BLOOD 6.1 H ASSESSMENT: #Tobacco Cessation: Hartley has been very successful in his efforts for smoking cessation. Recommended that patient restart varenicline if needed and reach out if he relapses. Patient would like to move forward with further follow-ups at this time. PLAN: ===== - Nothing further at this time. EDUCATION/COUNSELING: - Patient was encouraged to continue current tobacco cessation plan. - Discussed importance of avoiding triggers, using distraction techniques, and rewards of tobacco cessation. - Withdrawal symptoms were reviewed and discussed how to cope with cravings. Time spent: 15 minutes RTC: No further follow-up needed at this time. /umesh/ JEANNE PATEL PGY1 Repair Operator Signed: 05/28/2023 13:32 05/28/2023 ADDENDUM STATUS: COMPLETED The technical writer and editor precepted the above resident for this encounter, retail pharmacy merchandiser phone call not observed. Pertinent history and lab results were verified. Assessment and Plan reflects our discussion. Patient is a 72 yo seen today for tobacco cessation follow-up. See resident note for more subjective/objective information. Follow up: None scheduled at this time Time spent: 15 minutes /umesh/ DOC CARLSON, PharmD, BCPP, NCMP Clinical Pharmacist Practitioner Signed: 05/28/2023 15:[address] [facility]
--- OUTSIDE RECORDS SUMMARY | 2023-07-24 11:48 | XMS_ITS | Encounter Summary ---
Author Name Department of [facility] Organization Department of [facility] Address [address] [place] [address] Support Name Relationship Address Phone SHEFFIELD, KATJULIANA Next of Kin [address], [place] [id number] SHEFFIELD, KATJULIANA Emergency Contact [address] [place] [address] Insurance Providers: All historical and [...] PART A May 07, 2009 PART A [id number] RASHMI SHEFFIELD PATIENT MEDICARE (WNR) MEDICARE (M) PART B May 07, 2009 PART B [id number] RASHMI SHEFFIELD PATIENT Selected Encounter This section includes the information on record at [place] for the Encounter. Date/Time Encounter Type Encounter Description Reason Provider Source Dec 15, 2022 10:14 AM Outpatient Encounter ADMIN PAT ACTIVTIES (MASNONCT) CATHERINE ESTRELLA Faizan Encounter Template Text not used by [place] Plan of Treatment: Future Appointments (+ 6 months) and Future Tests (+/- 45 days) The Plan of Treatment section includes future care activities for the patient from all [place] treatmentfacilities. This section includes future appointments and future orders which are active, pending or scheduled. Future Appointments This section includes appointments that were scheduled to occur 6 months from the date of the Encounter, up to a maximum of 20 appointments. The data comes from all [place] treatment facilities. Appointment Date/Time Appointment Type Appointme nt Facility Name Dec 16, 2022 01:30 PM AMBULATORY [place] [facility] Jan 06, 2023 02:00 PM AMBULATORY - SURGERY [place] [facility] Feb 19, 2023 12:30 PM AM[place]UL[place]ORY - [place]ONE [place] [facility] Feb 19, 2023 01:30 PM AMBULATORY - MEDICINE [place] SALAZAR [facility] Mar 10, 2023 11:00 AM AMBULATORY - NONE [place] [facility] Mar 17, 2023 01:00 PM AMBULATORY - PS[place]IAT[place] [facility] Apr 14, 2023 11:00 AM AM[place]ORY - [place]ONE [place] [facility] May 28, 2023 09:30 AM [facility] Lab Results: +/- 30 days of the encounter This section includes the Chemistry and Hematology Lab Results on record with [place] for the patient. Radiology Reports and Pathology Reports are provided separately, in subsequent sections. Lab Results This section contains the Chemistry/Hematology Results that were resulted 30 days before or 30 daysafter the date of the Encounter. Date/Time Source Result Type Result - Unit Interpretation Reference Range Comment Dec 12, 2022 02:04 PM [facility] POC CREATININE Specimen Type: BLOOD No comment entered. Ordering Provider: CATHERINE ESTRELLA Report Released Date/Time: Dec 12, 2022 02:06 PM Reporting Lab: [facility] [id number] Performing Lab: [facility] [id number] POC CREATININE 1.3 0.6-1.3 Social History: Smoking Status (Most current) and Tobacco Use (All prior to encounter date) This section includes the most current, and the historical, smoking and tobacco- related health factors from the [place] facility where the Encounter took place. Current Smoking Status This section includes the most current smoking, or tobacco-related health factor, from the [facility] where the Encounter took place. Date/Time Current Smoking Status Comment Addy sahu Jun 09, 2022 01:00 PM VA-TOBACCO USER EVERY DAY [facility] Tobacco Use History This section includes a history of the smoking, or tobacco-related health factors, that were collected on or before the date of the Encounter. The data comes from the [place] facility where the Encounter took place. Date/Time Smoking Status/Tobac co Use Comment Facility Jun 09, 2022 01:00 PM VA-TOBACCO USE ADVICE [facility] Jun 09, 2022 01:00 PM VA-TOBACCO USE SENIOR GEOLOGIST NO [facility] Jun 09, 2022 01:00 PM VA-TOBACCO USE MED NO [facility] Jun 09, 2022 01:00 PM VA-TOBACCO USE WI 30 MIN OF WAKEUP [facility] Jun 09, 2022 01:00 PM VA-TOBACCO USER EVERY DAY [facility] Jul 15, 2021 01:30 PM VA-TOBACCO USE < 1 YEAR [facility] Jul 15, 2021 01:30 PM VA-TOBACCO USE ADVICE [facility] Jul 15, 2021 01:30 PM VA-TOBACCO USE SENIOR GEOLOGIST NO [facility] Jul 15, 2021 01:30 PM VA-TOBACCO USE MED NO [facility] Jul 15, 2021 01:30 PM VA-TOBACCO USE WI 30 MIN OF WAKEUP [facility] Jul 15, 2021 01:30 PM VA-TOBACCO USER EVERY DAY [facility] Dec 14, 2019 01:15 PM VA-TOBACCO FORMER USER [facility] Dec 14, 2019 01:15 PM VA-TOBACCO QUIT < 1 YEAR [facility] Dec 15, 2017 02:59 PM VA-TOBACCO DOESNT USE WI 30 MIN WAKEUP [facility] Dec 15, 2017 02:59 PM VA-TOBACCO USE > 1 5 LESS THAN 30 YEARS [facility] Dec 15, 2017 02:59 PM VA-TOBACCO USE ADVICE [facility] Dec 15, 2017 02:59 PM VA-TOBACCO USE COU NSEL YES plan that he will discuss tob cessation therapy with therapist today [facility] Dec 15, 2017 02:59 PM VA-TOBACCO USE MED NO [facility] Dec 15, 2017 02:59 PM VA-TOBACCO USER EVERY DAY [facility] Jun 30, 2017 09:17 AM CURRENT TOBACCO USER [facility] Jun 05, 2016 02:51 PM CURRENT TOBACCO USER [facility] Dec 07, 2013 02:06 PM CURRENT TOBACCO USER [facility] Dec 15, 2012 02:15 PM CURRENT TOBACCO USER [facility] Jan 23, 2012 01:13 PM CURRENT TOBACCO USER [facility] Jan 15, 2011 09:09 AM CURRENT TOBACCO USER [facility] Jan 17, 2010 02:05 PM CURRENT TOBACCO USER [facility] Jan 12, 2009 11:39 AM CURRENT TOBACCO USER [facility] Mar 14, 2008 03:02 PM CURRENT TOBACCO USER [facility] Apr 19, 2007 07:41 AM CURRENT TOBACCO USER [facility] Jul 14, 2006 09:11 AM CURRENT TOBACCO USER [facility] Advance Directives: All historical and current Section Date Range: From patient's date of to the date document was created. This section includes ALL of a patient's completed or amended [place] Advance and Rescinded Directives. The entries below indicate that a directive exists for the patient, but an actual copy is not included with this document. The data comes from all [place] facilities. Date Advance Directives Provider Source Feb 01, 2007 ADVANCE DIRECTIVE JOHN MARIEE WESTLEYMonisha SALAZAR [facility] Radiology Reports: +/- 30 days of the [...] the Encounter. The data comes from all [place] treatment facilities. Date/Time Radiology Report Provider Source Dec 12, 2022 02:09 PM LDCT LUNG CANCER S CREENING: RASHMI SHEFFIELD [id number] -1950 M Exm Date: DEC 12, 2022@14:09 Req Phys: CATHERINE ESTRELLA Pat Loc: [facility] PULM CHART CHECK [facility] (Req' Img Loc: CT IMAGING Service: Unknown (Case [id number] COMPLETE) LDCT LUNG CANCER SCREENING (CT Detailed) CPT:15538 Reason for Study: LDCT f/u LUNG RADS 2B pulm nodule (FOLLOW UP) Clinical History: IS NOT under investigation for COVID-19 or [...] 12, 2022 Date Verified: DEC 12, 2022 Sewer Hand E-Sig:/ES/HEATH HERNANDEZ MD Report: EXAM: LDCT LUNG CANCER SCREENING COMPARISON: CT chest, 12/11/2021 PROTOCOL: Screening protocol, low dose, non-contrast CT chest was performed in accordance with Lung-Rads 2. Additional coronal and sagittal reconstructions. MIP reconstructions [...] Primary Interpreting Staff: HEATH HERNANDEZ MD, RADIOLOGIST (Sewer Hand) /HEATH CRUZ [facility] Dec 12, 2022 02:05 PM CTA RUNOFF (LOWER EXTREMITY ANGIO) (P): RASHMI SHEFFIELD [id number] -1950 M Exm Date: DEC 12, 2022@14:05 Req Phys: KERACALVIN FAN Kandi Loc: [facility] PHONE (Req'g Img Loc: CT IMAGING Service: Unknown (Case [id number] COMPLETE) CTA ABDOMINAL ARTERIES W/ RUNOFF (CT Detailed) CPT:40573 Contrast Media : unspecified contrast media Reason [...] and contact information of the responsible staff pysician below. If not, type in N/A.Same, staff [...] PLASMA ESTIMATED GFR(eGF >60 Ref: >=60 Allergies: (Calvin only) Patient has answered NKA Report Status: Verified Date Reported: DEC 12, 2022 Date Verified: DEC 12, 2022 Sewer Hand E-Sig:/ES/MORALES MÉNDEZ MD Report: ABDOMINAL/PELVIC AORTIC CTA [...] Primary Interpreting Staff: MORALES MÉNDEZ MD, RADIOLOGIST (Sewer Hand) /SRS MORALES MÉNDEZ [facility] Dec 12, 2022 12:32 PM SEGMENTALS/CARLYLE: RASHMI SHEFFIELD MILDRED [id number] -1950 M Exm Date: DEC 12, 2022@12:32 Req Phys: CALVIN COTE Loc: [facility] PHONE (Req'g Img Loc: VASCULAR LAB PROCEDURES Service: Unknown (Case [id number] COMPLETE) SEGMENTALS/CARLYLE (VAS Detailed) CPT:71219 Reason for Study: PAD Clinical History: Please note that this study requires a 30min apt. time. IS NOT under investigation for COVID-19 or is COVID-19 negative Bilateral lower extremity claudication, history of PAD Responsible provider name and phone number to notify for critical findings if other than user placing the order and pager listed below: User placing orders pager: [phone] LAST CREATININE____ Report Status: Verified Date Reported: DEC 12, 2022 Date Verified: DEC 12, 2022 Sewer Hand E-Sig:/ES/MORALES MÉNDEZ MD Report: Bilateral Lower Extremity [...] femoral-popliteal arterial disease. First toe PPG: Normal. IMorales, have reviewed the images and report. Primary Interpreting Staff: MORALES MÉNDEZ MD, RADIOLOGIST (Sewer Hand) Primary Interpreting Resident: KISHOR FLANNERY, , SEARCH PLANNER /SCOUTL MORALES MÉNDEZ [facility] Encounter Notes: All associated encounter notes This section contains the clinical notes associated to the Encounter. Date/Time Encounter Note(s) Provider Source Dec 15, 2022 10:17 AM LETTERS: LOCAL TITLE: FOLLOW UP RESULTS LETTER STANDARD TITLE: LETTERS DATE OF NOTE: DEC 15, 2022@10:17 ENTRY DATE: DEC 15, 2022@10:17:25 AUTHOR: BENY BARRETO COSIGNER: URGENCY: STATUS: COMPLETED [facility] [address] [place] [address] Dec RASHMI SHEFFIELD [address] [place] [id number] Dear [place]: Your recent chest imaging on Dec showed: no change in the nodule(s) on your chest CT scans over a long enough period of time that we can now consider them to be benign (or cancer free). No further follow-up of the nodule(s) is necessary. You may now return to the routine lung cancer screening program. If you still meet criteria for screening, your PCP will let you know when it is time to be screened again. This is usually about a year from your last screening chest CT. More detailed handout about small lung nodules will be mailed to you soon. If you are scheduled for a scan in the future and you have symptoms of a chest cold at that time, please call number on appointment letter to reschedule for four weeks after symptoms improve. If you have any further questions or problems, please contact Lung Cancer Screening staff at [phone]. BENY BARRETO MA, [facility] Ssrs Developer BENY BARRETO [facility] Dec 15, 2022 10:16 AM PULMONARY NOTE: LOCAL TITLE: PULMONARY LUNG CANCER SCREENING STANDARD TITLE: PULMONARY NOTE DATE OF NOTE: DEC 15, 2022@10:16 ENTRY DATE: DEC 15, 2022@10:16:15 AUTHOR: BENY BARRETO EXP COSIGNER: URGENCY: STATUS: COMPLETED NO LUNG NODULES or TRACKING OF NODULE NOT INDICATED per guidelines (e.g., clearly benign/some small nodules). Date of image: Date: December 12, 2022 LDCT Scan Results: Most recent LDCT scan shows a nodule for which tracking is not indicated per guidelines or radiology report. No incidental findings were noted. Plan: Continue routine annual lung cancer screening. Patient Notification of results: Results letter sent to patient. Alie, please mail No Nodule leaflet. Thank you! /umesh/ BENY BARRETO MA RN [facility] Ssrs Developer Signed: 12/15/2022 10:16 Receipt Acknowledged By: 12/26/2022 07:41 /umesh/ ALIE HERNANDEZ LEAD ECD BENY BARRETO [facility]
--- OUTSIDE RECORDS SUMMARY | 2023-07-24 11:48 | XMS_ITS | Encounter Summary ---
Author Name [facility] Organization [facility] Address [address] [place] [address] Support Name Relationship Address Phone SHEFFIELD, KATJULIANA Next of Kin [address], [place] [id number] SHEFFIELD, KATJULIANA Emergency Contact [address] [place] [address] Insurance Providers: All historical and [...] PART A May 07, 2009 PART A [id number] [phone] RASHMI SHEFFIELD PATIENT MEDICARE (WNR) MEDICARE (M) PART B May 07, 2009 PART B [id number] RASHMI SHEFFIELD PATIENT Selected Encounter This section includes the information on record at [place] for the Encounter. Date/Time Encounter Type Encounter Description Reason Provider Source Feb 19, 2023 01:30 PM OFFICE O/P EST HI 40-54 MIN PRIMARY CARE/MEDICINE ICD-10-CM I10 Essential (primary) hypertension MAKI ESTRELLA Faizan Encounter Template Text not used by [place] Assessments - Encounter Diagnoses This section includes the primary and secondary diagnoses documented for the Encounter. Date/Time Primary/Secondary Diagnosis Diagnosis Name Provider Source Feb 19, 2023 02:46 PM PRIMARY Essential (primary) hypertension MAKI ESTRELLA [facility] Feb 19, 2023 02:46 PM SECONDARY Encounter for immunization GAVINO JESSICA [facility] Feb 19, 2023 02:46 PM SECONDARY Hypotension, unspecified MAKI ESTRELLA [facility] Feb 19, 2023 02:46 PM SECONDARY Major depressive disorder, single episode, unspecified DELORESMAKI F [facility] Feb 19, 2023 02:46 PM SECONDARY Mixed hyperlipidemia MAKI ESTRELLA Bakari [facility] Feb 19, 2023 02:46 PM SECONDARY Nicotine dependence, cigarettes, uncomplicated DELORESMAKI [facility] Feb 19, 2023 02:46 PM SECONDARY Peripheral vascular disease, unspecified DELORESMAKI F [facility] Plan of Treatment: Future Appointments (+ 6 months) and Future Tests (+/- 45 days) The Plan of Treatment section includes future care activities for the patient [facility] This section includes future appointments and future orders which are active, pending or scheduled. Future Appointments This section includes appointments that were scheduled to occur 6 months from the date of the Encounter, up to a maximum of 20 appointments. The data comes from all [place] treatment facilities. Appointment Date/Time Appointment Type Appointme nt Facility Name Mar 10, 2023 11:00 AM AMBULATORY - NONE [facility] Mar 17, 2023 01:00 PM AMBULATORY - PSYCHIATRY [facility] Apr 14, 2023 11:00 AM AMBULATORY - NONE [facility] May 28, 2023 09:30 AM AMBULATORY - NONE [facility] Lab Results: +/- 30 days of the encounter This section includes the Chemistry and Hematology Lab Results on record with [place] for the patient. Radiology Reports and Pathology Reports are provided separately, in subsequent sections. Lab Results This section contains the Chemistry/Hematology Results that were resulted 30 days before or 30 daysafter the date of the Encounter. Date/Time Source Result Type Result - Unit Interpretation Reference Range Comment Feb 19, 2023 12:09 PM [facility] HEMOGLOBIN A1C Specimen Type: BLOOD Comment: Values obtained from A1C measurements can vary. For typical A1C assays, a reported value of 7.0 could actually be between 6.7 and 7.3 if measured by a reference method. A reported value of 9.0 could actually be between 8.7 and 9.3. Ref: http://www.ngs p.org/CAPdata. asp Ordering Provider: MAKI ESTRELLA Report Released Date/Time: Nov 26, 2021 02:17 PM Reporting Lab: [facility] [id number] Performing Lab: [facility] [id number] HEMOGLOBIN A1C 5.6 4.0-6.0 Feb 19, 2023 12:09 PM [facility] LIPID PANEL,NON-FASTING Specimen Type: PLASMA No comment entered. Ordering Provider: MAKI ESTRELLA Report Released Date/Time: Nov 26, 2021 02:17 PM Reporting Lab: [facility] [id number] Performing Lab: [facility] [id number] CHOLESTEROL 179 <199 .HDL 39 L >40 LDL CALCULATION 116 H <99 VLDL CALCULATION 24 <29 NON HDL CHOLESTEROL 140 H <129 TRIG(NON FASTING) 118 <149 Feb 19, 2023 12:09 PM [facility] BASIC METABOLIC PANEL+MG Specimen Type: PLASMA No comment entered. Ordering Provider: MAKI ESTRELLA Report Released Date/Time: Nov 26, 2021 02:17 PM Reporting Lab: [facility] [id number] Performing Lab: [facility] [id number] CREATININE 1.0 0.7-1.2 UREA NITROGEN 14 8-26 GLUCOSE 104 H 70-100 SODIUM 139 136-145 POTASSIUM 3.9 3.5-5.1 CHLORIDE 104 98-107 CO2 25 22-29 CALCIUM 9.5 8.4-10.2 MAGNESIUM 1.8 1.6-2.6 ANION GAP 10 5-15 .CREAT EGFR(CKD-EPI) 79 >60 Vital Signs: All taken on the encounter date This section contains inpatient and outpatient Vital Signs collected on the date of the Encounter. Date/Time Temperature Pulse Blood Pressure Respiratory Rate SP02 Pain Height Weight Body Mass Index Source Feb 19, 2023 12:54 PM 97.7 F 74 /min 128/60 mm[Hg] 18 /min 72 % 0 72 in 208 lb 28 [facility] Immunizations: All administered on the encounter date This section contains immunizations associated to the Encounter. Immunization Series Date Issued Reaction Comments INFLUENZA, HIGH-DOSE, QUADRIVALENT Feb 19, 2023 Social History: Smoking Status (Most current) and Tobacco Use (All prior to encounter date) This section includes the most current, and the historical, smoking and tobacco- related health factors from the [place] facility where the Encounter took place. Current Smoking Status This section includes the most current smoking, or tobacco-related health factor, from the [facility] facility where the [facility]counter took place. Date/Time Current Smoking Status Comment Addy sahu Jun 09, 2022 01:00 PM VA-TOBACCO USE WI 30 MIN OF WAKE UP [facility] Tobacco Use History This section includes a history of the smoking, or tobacco-related health factors, that were collected on or before the date of the Encounter. The data comes from the [facility] where the Encounter took place. Date/Time Smoking Status/Tobac co Use Comment Facility Jun 09, 2022 01:00 PM VA-TOBACCO USE ADVICE [facility] Jun 09, 2022 01:00 PM VA-TOBACCO USE PIECE PRESSER NO [facility] Jun 09, 2022 01:00 PM VA-TOBACCO USE MED NO [facility] Jun 09, 2022 01:00 PM VA-TOBACCO USE WI 30 MIN OF WAKEUP [facility] Jun 09, 2022 01:00 PM VA-TOBACCO USER EVERY DAY [facility] Jul 15, 2021 01:30 PM VA-TOBACCO USE < 1 YEAR [facility] Jul 15, 2021 01:30 PM VA-TOBACCO USE ADVICE [facility] Jul 15, 2021 01:30 PM VA-TOBACCO USE PIECE PRESSER NO [facility] Jul 15, 2021 01:30 PM VA-TOBACCO USE MED NO [facility] Jul 15, 2021 01:30 PM VA-TOBACCO USE WI 30 MIN OF WAKEUP [facility] Jul 15, 2021 01:30 PM VA-TOBACCO USER EVERY DAY [facility] Dec 14, 2019 01:15 PM VA-TOBACCO FORMER USER [facility] Dec 14, 2019 01:15 PM VA-TOBACCO QUIT < 1 YEAR [facility] Dec 15, 2017 02:59 PM VA-TOBACCO DOESNT USE WI 30 MIN WAKEUP [facility] Dec 15, 2017 02:59 PM VA-TOBACCO USE > 1 5 LESS THAN 30 YEARS [facility] Dec 15, 2017 02:59 PM VA-TOBACCO USE ADVICE [facility] Dec 15, 2017 02:59 PM VA-TOBACCO USE COU NSEL YES plan that he will discuss tob cessation therapy with therapist today [facility] Dec 15, 2017 02:59 PM VA-TOBACCO USE MED NO [facility] Dec 15, 2017 02:59 PM VA-TOBACCO USER EVERY DAY [facility] Jun 30, 2017 09:17 AM CURRENT TOBACCO USER [facility] Jun 05, 2016 02:51 PM CURRENT TOBACCO USER [facility] Dec 07, 2013 02:06 PM CURRENT TOBACCO USER [facility] Dec 15, 2012 02:15 PM CURRENT TOBACCO USER [facility] Jan 23, 2012 01:13 PM CURRENT TOBACCO USER [facility] Jan 15, 2011 09:09 AM CURRENT TOBACCO USER [facility] Jan 17, 2010 02:05 PM CURRENT TOBACCO USER [facility] Jan 12, 2009 11:39 AM CURRENT TOBACCO USER [facility] Mar 14, 2008 03:02 PM CURRENT TOBACCO USER [facility] Apr 19, 2007 07:41 AM CURRENT TOBACCO USER [facility] Jul 14, 2006 09:11 AM CURRENT TOBACCO USER [facility] Advance Directives: All historical and current Section Date Range: From patient's date of to the date document was created. This section includes ALL of a patient's completed or amended [place] Advance and Rescinded Directives. The entries below indicate that a directive exists for the patient, but an actual copy is not included with this document. The data comes from all [place] facilities. Date Advance Directives Provider Source Feb 01, 2007 ADVANCE DIRECTIVE JOHN MARIEE [facility] Encounter Notes: All associated encounter notes This section contains the clinical notes associated to the Encounter. Date/Time Encounter Note(s) Provider Source Feb 19, 2023 02:42 PM ADMINISTRATIVE NOT E: LOCAL TITLE: AFTER VISIT SUMMARY NOTE STANDARD TITLE: ADMINISTRATIVE NOTE DICT DATE: FEB 19, 2023@14:42:57 ENTRY DATE: FEB 19, 2023@14:42:57 DICTATED BY: MAKI ESTRELLA EXP COSIGNER: URGENCY: STATUS: COMPLETED The patient was provided with a copy of an after-visit summary at the conclusion of the visit. A copy of the after-visit summary provided to the patient is available in [employer]. SCANNED DOCUMENT SIGNATURE NOT REQUIRED Electronically Filed: 02/19/2023 by: MAKI ESTRELLA MD STAFF Physician MAKI ESTRELLA [facility] Feb 19, 2023 02:20 PM INTERNAL MEDICINE NOTE: LOCAL TITLE: MEDICINE CLINIC NOTE STANDARD TITLE: INTERNAL MEDICINE NOTE DATE OF NOTE: FEB 19, 2023@14:20 ENTRY DATE: FEB 18, 2023@16:41:20 AUTHOR: MAKI ESTRELLA EXP COSIGNER: URGENCY: STATUS: COMPLETED SUBJECT: Annual Visit MEDICINE CLINIC NOTE Has ADDENDA RASHMI SHEFFIELD is a 72 year old MALE here for follow up on medical problems as noted in problem list below. Nurse's note and prior clinic notes reviewed. HPI: Last f/u in April. Saw Dr. Beasley recently; had f/u ABIs and CTA. Discussed that his claudication worsened but has no rest pain, non-healing wounds, and changes to skin color. CTA showed mild to moderate bilateral iliac disease. Discussed that intervention would require bilateral femoral to popliteal bypasses and risks of a major surgery outweigh the benefits. Legs still bad.. hard to walk more than 40 yards w/o pain. Can't quit smoking, feels he has to but just cant. Likes smoking, has tried lots of things but not helpful. Cant use NRT gum d/t dentures. Taking ASA PRN for ZAMBRANO/head cold. Low BP at home better but still occasionally SBP 80-120s. REVIEW OF SYSTEMS: ROS negative except for as noted above. MEDICAL HISTORY: Reviewed and updated in problem list. SOCIAL HISTORY: Reviewed in problem list and nurses note. ALLERGIES REVIEWED EXAM: Blood Pressure: 128/60 (02/19/2023 12:54) Pulse: 74 (02/19/2023 12:54) Weight: 208 lb [94.35 kg] (02/19/2023 12:54) Body Mass Index: 28.3 General: Alert, well developed, NAD HEENT: Head normocephalic, sclera anicteric Lungs:Nonlabored respirations, on RA, clear breath sounds, normal effort CV: RRR, S1S2, no murmurs Pulses: distal pulses palpable and symmetric Abdomen: Soft, nontender, nondistended MSK: Normal muscle bulk and tone Extremities: No deformities, warm, dry, no edema Skin: Warm, dry, no visible lesions Neuro: Appropriate, oriented, no abnormal movements, normal gait Psych: Pleasant, cooperative, attentive DATA/LABS REVIEWED: SODIUM 139 (02/19/23) POTASSIUM 3.9 (02/19/23) CHLORIDE 104 (02/19/23) CO2 25 (02/19/23) UREA NITROGEN 14 (02/19/23) CREATININE 1.0 (02/19/23) GLUCOSE 104 H (02/19/23) CALCIUM 9.5 (02/19/23) MAGNESIUM 1.8 (02/19/23) EGFR (11/07) 12/14/20 @ 0921 66 CREATININE EGFR (CKD-EPI) 02/19/23 @ 1209 79 CREATININE 1.0 PLASMA (02/19/23 12:09) Lipid Profile: CHOLESTEROL 179 (02/19/23) HDL 39 L (02/19/23) LDL CALCULATION 116 H (02/19/23) MEASURED LDL____ TRIGLYCERIDE____ LAB CUMULATIVE SELECTED Collection DT Spec HGBA1C 02/19/2023 12:09 BLOOD 5.6 07/11/2021 09:53 BLOOD 6.1 H 12/14/2020 09:21 BLOOD 6.1 H Reviewed recent labs/imaging results with patient ASSESSMENT & PLAN: #HTN: At goal 140/90 per VA/DoD guidelines off all meds on home reading and 24 hr monitor. Continue to monitor at home. #Hypotension: 24 hr monitor no hypotension, seen in ED w normal BP Stopped HCTZ/Triamterene given lack of additional benefit/hypokalemia, stopped losartan d/t hypotension - Off losartan 25 mg and all HTN meds -TTE pending- rescheduled - will alert echo consult -Encouraged drink more fluids, stand up slowly, sit when voiding #PAD with claudication, s/p bilateral iliac stents. CTA October 2017 w severe bilat SFA disease. Last CTA w iliac disease, would require bilateral fem-pop bypasses and surgical risk >benefist. PLanning f/u 1 yr w vascular. -Increase activity/exercise to improve claudication- walk beyond pain, then rest -Continue statin and ASA, DM well controlled, encouraged smoking cessation #Microscopic hematuria: repeat UA no blood. will monitor. #Pulmonary nodules: LNT program #Severe coronary artery calcification: asymptomatic. -Continues high intensity statin, BP control, encouraged smoking cessation. #Infrarenal saccular AAA (3.5cm): relatively stable; 3mm over past 7 years. F/u imaging q3 yrs given stability per vascular - getting CTAs #Tobacco use disorder: reviewed cessation options, offered career coach/NRT -Encouraged PACT pharmacist referral; recently increased bupropion #DM2: goal A1c <8%, VERY well controlled x 10 years. On statin. No ACEI d/t hypotension. -REasonable to stop metformin given very low dose and A1c in NORMAL range #Hyperlipidemia: LDL above goal (<70), started rosuvastatin/slo-niacin, stll getting benefit from high intensity statin -Recheck lipids next annual visit or sooner #PTSD: seeing MH, on recently increased dose bupropion and mirtazapine #Dermatitis: dorsal hands, suspect eczema vs contact dermatitis - trial triamcinolone cream x 2-4 weeks, call if no better -[place]or for hydration/prevention #Health Care Maintenance: CRC: Annual - declines FIT again today. AAA Screen: +AAA- on surveillance DM II (Adults 40-70 + obesity): HEMOGLOBIN A1C w labs Statin (ASCVD > 7.5%, age 40-75): on statin Prostate CA: N/A Lung CA: following w LDCT program #Skin Tests/Immunizations: encouraged flu/covid if not done yet Return to clinic annual visit 1 yr with labs Maki Estrella MD MPAS Total time spent on patient care including chart review, JLV review, diagnostic and testing review, patient interview/examination, communicating with consultants, care plan changes, counseling and documentation with patient and/or surrogate was >45 minutes. Future Appointments: FEB 19, 2023@12:30 Clinic: [facility] BLO[facility]RAW[facility] FEB 19, 2023@13:30 Clinic: [facility] MAR 17, 2023@13:00 Clinic: [facility] [id number] Avg Risk Colorectal Cancer Screen: AVERAGE RISK colorectal cancer screening is due based on information available to this clinical reminder Colorectal cancer screening/surveillance will be stopped. Reason: patient declines Diabetic Nephropathy Screening : Patient declined Diabetic Nephropathy Screening today. Comment: cant tolerate ACEI Medication Reconciliation: Education Evaluations *Was medication education provided for NEW medications or CHANGES to medications? (including medication name, dose, route, reason for use, and potential side effects). Yes. Verbal education was provided to patient/caregiver and patient/caregiver verbalized understanding. TERATOGENIC MED & CONTRACEPTION REVIEW (Optional)... === MEDICATION RECONCILIATION === List Given: An updated medication list was provided to the patient/caregiver. Review Done: The medication list shown below was verified for accuracy and it includes all pending medications/active medications/all medications or discontinued within the last 90 days/all remote medications and non-VA medications. If a given category (i.e. remote meds) is not shown, that means that a patient doesn't have a medication(s) in that category. Allergies listed below were also reviewed/updated for accuracy. Allergies/ADR from DoD may not display in CPRS. Use JLV MRT5 - Allergies/ADRs FACILITY ALLERGY/ADR -------- No Remote Allergy/ADR Data available for this patient [facility] No Known Allergies Active and Recently Outpatient Medications (including Supplies): Issue Date Status Last Fill Active Outpatient Medications Refills Expiration 1) BUPROPION HCL 150MG 24HR SA TAB Qty: ACTIVE Issu:12-16-22 270 for 90 days Sig: TAKE THREE Refills: 1 Last:12-17-22 TABLETS BY MOUTH EVERY MORNING FOR Expr:12-17-23 MOOD FOR MOOD 2) METFORMIN HCL 1000MG TAB Qty: 45 for 90 ACTIVE Issu:01-23-23 days Sig: TAKE ONE-HALF TABLET BY Refills: 3 Last:02-01-23 MOUTH AT BEDTIME FOR ELEVATED FASTING Expr:01-24-24 GLUCOSE -TAKE WITH FOOD 3) MIRTAZAPINE 30MG TAB Qty: 135 for 90 ACTIVE Issu:12-16-22 days Sig: TAKE ONE AND ONE-HALF Refills: 1 Last:02-16-23 TABLETS BY MOUTH AT BEDTIME FOR Expr:12-17-23 DEPRESSION 4) MULTIVIT/OPHTH AREDS2/LUTE/ZEAX CAP/TAB ACTIVE Issu:01-23-23 Qty: 120 for 60 days Sig: TAKE 1 Refills: 5 Last:01-26-23 CAP/TAB BY MOUTH TWICE A DAY FOR Expr:01-24-24 MACULAR DEGENERATION 5) ROSUVASTATIN CA 40MG TAB Qty: 45 for 90 ACTIVE Issu:08-14-22 days Sig: TAKE ONE-HALF TABLET BY Refills: 2 Last:01-23-23 MOUTH EVERY DAY FOR CHOLESTEROL (DO Expr:08-15-23 NOT CONVERT) Issue Date Status Last Fill Inactive Outpatient Medications Refills Expiration 1) BUPROPION HCL 300MG 24HR SA TAB Qty: 90 DISCONTINUED Issu:06-09-22 for 90 days Sig: TAKE ONE TABLET BY (EDIT) Last:11-13-22 MOUTH EVERY MORNING FOR MOOD Refills: 0 Expr:06-10-23 2) BUPROPION HCL 300MG 24HR SA TAB Qty: 90 DISCONTINUED Issu:12-12-21 for 90 days Sig: TAKE ONE TABLET BY Refills: 0 Last:05-23-22 MOUTH EVERY MORNING FOR MOOD Expr:12-13-22 3) CALCIUM 250MG/VITAMIN D 125 UNT TAB Issu:01-10-22 Qty: 300 for 50 days Sig: TAKE 2 Refills: 7 Last:11-13-22 TABLETS BY MOUTH THREE TIMES A DAY FOR Expr:01-11-23 BONES 4) LOSARTAN 50MG TAB Qty: 45 for 90 days DISCONTINUED Issu:11-26-21 Sig: TAKE ONE-HALF TABLET BY MOUTH Refills: 3 Last:11-28-21 EVERY DAY FOR BLOOD PRESSURE, FOR Expr:11-27-22 KIDNEY PROTECTION BLOOD PRESSURE GOAL 140/90 OR LOWER - NOTE DOSE REDUCTION 5) METFORMIN HCL 1000MG TAB Qty: 45 for 90 DISCONTINUED Issu:11-15-21 days Sig: TAKE ONE-HALF TABLET BY Refills: 0 Last:11-13-22 MOUTH AT BEDTIME FOR ELEVATED FASTING Expr:11-16-22 GLUCOSE -TAKE WITH FOOD 6) MIRTAZAPINE 30MG TAB Qty: 135 for 90 DISCONTINUED Issu:06-09-22 days Sig: TAKE ONE AND ONE-HALF Refills: 0 Last:11-18-22 TABLETS BY MOUTH AT BEDTIME FOR Expr:06-10-23 DEPRESSION 7) MULTIVIT/OPHTH AREDS2/LUTE/ZEAX CAP/TAB DISCONTINUED Issu:01-10-22 Qty: 120 for 60 days Sig: TAKE 1 Refills: 0 Last:11-13-22 CAP/TAB BY MOUTH TWICE A DAY FOR Expr:01-11-23 MACULAR DEGENERATION 8) NIACIN (SLO-NIACIN) 500MG TAB,SA Qty: Issu:11-15-21 100 for 90 days Sig: TAKE ONE TABLET Refills: 0 Last:11-13-22 BY MOUTH EVERY DAY FOR HIGH Expr:11-16-22 CHOLESTEROL 9) ROSUVASTATIN CA 40MG TAB Qty: 45 for 90 DISCONTINUED Issu:11-15-21 days Sig: TAKE ONE-HALF TABLET BY Refills: 0 Last:08-06-22 MOUTH EVERY DAY FOR CHOLESTEROL (DO Expr:11-16-22 NOT CONVERT) Start Date Active Non-VA Medications Refills Expiration 1) Non-VA ASPIRIN 81MG EC TAB Si MG ACTIVE MOUTH DAILY 2) Non-VA FISH OIL 1000MG (500MG DHA/EPA) ACTIVE CAP Si GM MOUTH EVERY DAY 3) Non-VA FOLIC ACID 1MG TAB Si MG ACTIVE MOUTH TWICE A DAY 17 Total Medications /umesh/ MAKI ESTRELLA MD STAFF Physician Signed: 02/19/2023 14:46 02/19/2023 ADDENDUM STATUS: COMPLETED Addendum to Exam: Scaly erythematous thickening w some fissures over dorsal hands, symmetric, w excoriations Lungs: no wheezing DP and abdominal exam not assessed /umesh/ MAKI ESTRELLA MD STAFF Physician Signed: 02/19/2023 14:49 MAKI ESTRELLA [facility] Feb 19, 2023 12:57 PM INTERNAL MEDICINE OUTPATIENT NOTE: LOCAL TITLE: MEDICINE CLINIC NURSING NOTE STANDARD TITLE: INTERNAL MEDICINE OUTPATIENT NOTE DATE OF NOTE: FEB 19, 2023@12:57 ENTRY DATE: FEB 19, 2023@12:57:41 AUTHOR: TATIANNA JESSICA EXP COSIGNER: URGENCY: STATUS: COMPLETED TYPE OF VISIT: Appointment Check In Type of appointment: In-person appointment REASON FOR VISIT: Routine check up ALLERGIES: Patient has answered NKA VITAL SIGNS: Blood Pressure: 128/60 (02/19/2023 12:54) Pulse: 74 (02/19/2023 12:54) Respiration: 18 (02/19/2023 12:54) Temperature: 97.7 F [36.5 C] (02/19/2023 12:54) Weight: 208 lb [94.35 kg] (02/19/2023 12:54) Height: 72 in [182.9 cm] (02/19/2023 12:54) BMI: 28.3 O2 Sat: 72% (02/19/2023 12:54) Pain: 0 (02/19/2023 12:54) PAIN SCREEN: Patient is not having significant pain that they wish to discuss with their provider today. MEDICATION Over the Counter/Herbal Medications: The patient states that they take some outside medications and/or herbals. COVID-19 Immunization: Refused Pfizer Monovalent COVID-19 vaccine Immunization: COVID-19 (PFIZER), MRNA, LNP-S, PF, GABRIELLE-SUCROSE, 30 MCG/0.3 ML (AGES 12+ YEARS) Refusal Reason: PATIENT DECISION Patient refuses all immunization(s) in the COVID-19 group Date Documented: 11/16/23 12:59 Influenza Immunization: The patient was given the influenza VIS which lists the benefits and side effects of the vaccine and which reviews the risks of not receiving the flu vaccine. The VIS was reviewed with the patient and they were given an opportunity to ask questions. The patient was provided education on how to decrease the risk of influenza infection including social distancing and use of good hand hygiene. The patient denied any prior severe reaction to the flu vaccine or its components. The patient gave verbal consent to receive the vaccine. Influenza, High Dose, Quadrivalent (Fluzone - syringe) Administered: INFLUENZA, HIGH-DOSE, QUADRIVALENT Date Administered: Feb 19, 2023 12:59 Product Support Specialist: SANOFI PASTEUR Lot: [id number] Exp Date: Oct 04, 2023 [facility]: [phone] Admin Route/Site: INTRAMUSCULAR/LEFT DELTOID Dosage: 0.7mL Vaccine Information Statement(s): INFLUENZA(FLU) VACC(INACTIVATED OR RECOMBINANT)VIS Nov 09, 2020 (ITALIAN) Order By: Policy Administered By: Tatianna Jessica /umesh/ TATIANNA HurleyPJose RaulN LINE MAINTAINER Signed: 02/19/2023 13:02 TATIANNA JESSICA [facility]
--- OUTSIDE RECORDS SUMMARY | 2023-07-24 11:48 | XMS_ITS | Continuity of Care Document ---
Author Name [facility] Organization [facility] Care Team Providers Care Safety Equipment Testing Specialist Name Role Phone [facility] Unavailable Unavailable Problems Combined list of problems from Department of Defense and Veterans Affairs facilities. It does not include entries that were removed or entered in error. Problem Status Onset Date Problem Type Date of Resolution Comments Source Exposure to potentially hazardous substance (RUST [id number]) Active 06/11/19 24 Condition Jun 11, 2023 Entered By: MARICRUZ PATEL Comment[facility] ANIL Documentation Initiative [facility] Abdominal aortic aneurysm without rupture Active Condition Nov 09, 2020 Entered By: SHAYY COHEN Comment: 3.5cm AAA in 2020, increased from 3.2cm over 7yrs, needs surveillance imaging in 2022 Entered By: CATHERINE ESTRELLA Comment: 12/27: CTA partially thrombosed infrarenal AA stable x years [facility] Calcification of coronary artery Active Condition Dec 11, 2021 Entered By: CATHERINE ESTRELLA Comment: CT 12/2021: Severe calcification of the coronary arteries [facility] Cataract nos Active Condition [facility] Diabetic neuropathy (SNOMED CT 061892969) Active Condition [facility] Family social history Active Condition May 03, 2009 Entered By: HOLA EATON Comment: mother dm2, 1st [place] @39Jan 2009 Entered By: HOLA EATON Comment: father of emphysemaMay 03, 2009 Entered By: HOLA EATON Comment: sister Crohn'sSep 2020 Entered By: CATHERINE ESTRELLA Comment: [place]. Lives at home w . Quit smoking 12/2020. [facility] Hyperlipidemia (SNOMED CT 51290204) Active Condition [facility] Hypertension (SNOMED CT 83134553) Active Condition [facility] Major depressive disorder Active Condition [facility] Multiple nodules of lung Active Condition Dec 15, 2022 Entered By: CATHERINE ESTRELLA Comment: CT 12/2021, in LNT program, stable 12/27, f/u 1 yr [facility] Nicotine dependence Active Condition [facility] Nonexudative age-related macular degeneration Active Condition [facility] Peripheral vascular disease (SNOMED CT 585808896) Active Condition Aug 02, 2007 Entered By: HOLA EATON Comment: R iliac stent x [address] [facility] [address] [place] 2020 Entered By: CATHERINE ESTRELLA Comment: 04/20: Balloon angioplasty L EIA, profunda, SFAJul 2020 Entered By: CATHERINE ESTRELLA Comment: 2013: L SFA angioplasty, left TRACY stent, R TRACY stent [facility] Posttraumatic stress disorder Active Condition [facility] Pulmonary emphysema Active Condition [facility] Diagnosis: ICD-10-CM F17.210 Nicotine dependence, cigarettes, uncomplicated Active Diagnosis [facility] Diagnosis: ICD-10-CM F32.9 Major depressive disorder, single episode, unspecified Active Diagnosis [facility] Diagnosis: ICD-10-CM I10 Essential (primary) hypertension Active Diagnosis [facility] Diagnosis: ICD-10-CM 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, bi legs Active Diagnosis [facility] Diagnosis: ICD-10-CM F43.10 Post-traumatic stress disorder, unspecified Active Diagnosis [facility] Diagnosis: ICD-10-CM I95.9 Hypotension, unspecified Active Diagnosis [facility] Diagnosis: ICD-10-CM F43.12 Post-traumatic stress disorder, chronic Active Diagnosis [facility] Diagnosis: ICD-10-CM I71.30 Abdominal aortic aneurysm, ruptured, unspecified Active Diagnosis [facility] Diagnosis: ICD-10-CM Z02.89 Encounter for other administrative examinations Active Diagnosis [facility] Diagnosis: ICD-10-CM Z23 Encounter for immunization Active Diagnosis [facility] Medications Combined list of outpatient medications from Department of Defense and Veterans Affairs facilities.Medications provided include 1) outpatient medications from the last 15 months, and 2) patient-reported medications. Medication Details Route Status Patient Instructions Prescription Expires Prescription Number Last Dispense Date Ordering Provider Order Date Order Qty Source ASPIRIN 81MG TAB,EC TAKE ONE TABLET BY MOUTH DAILY ORALLY ACTIVE HOLA EATON 2007 [facility] BUPROPION HCL 150MG 24HR TAB,SA TAKE THREE TABLETS BY MOUTH EVERY MORNING FOR MOOD FOR MOOD ORALLY ACTIVE 12/17/2023 [id number] RAMIRO BENEDICT 2022 [address] [facility] BUPROPION HCL 300MG 24HR TAB,SA TAKE ONE TABLET BY MOUTH EVERY MORNING FOR MOOD ORALLY DISCONT INUED (EDIT) 06/10/2023 [id number] 3 RAMIRO BENEDICT 2022 [address] [facility] BUPROPION HCL 300MG 24HR TAB,SA TAKE ONE TABLET BY MOUTH EVERY MORNING FOR MOOD ORALLY DISCONT INUED 12/13/2022 [id number] 3 [facility]EDICT [facility] CALCIUM 250MG/VITAM IN D 125UNT TAB TAKE 2 TABLETS BY MOUTH THREE TIMES A DAY FOR BONES ORALLY DISCONT INUED 01/11/2023 [id number] 3 ALVARADO ESTRELLA F 2021 300 [facility] FISH OIL 1000MG (500MG DHA/EPA) CAP,ORAL TAKE 1 CAPSULE BY MOUTH EVERY DAY ORALLY ACTIVE [facility] C 2008 [facility] FOLIC ACID 1MG TAB TAKE ONE TABLET BY MOUTH TWICE A DAY ORALLY ACTIVE [facility] 2007 [facility] HYDROPHILIC (EQV EUCERIN) CREAM,TOP APPLY TO AREAS OF DRY SKIN TOPICALL Y EVERY DAY FOR MOISTURI ZER IDEALLY WITHIN 3 MINUTES AFTER BATH OR SHOWER. TOPICA LLY ACTIVE 02/20/2024 [id number] 3 ALVARADO ESTRELLA F 2022 454 [facility] METFORMIN HCL 1000MG TAB TAKE ONE-HALF TABLET BY MOUTH AT BEDTIME FOR ELEVATED FASTING GLUCOSE -TAKE WITH FOOD ORALLY DISCONT INUED 01/24/2024 [id number] 3 ALVARADO ESTRELLA F 2022 45 [facility] METFORMIN HCL 1000MG TAB TAKE ONE-HALF TABLET BY MOUTH AT BEDTIME FOR ELEVATED FASTING GLUCOSE -TAKE WITH FOOD ORALLY DISCONT INUED 11/16/2022 [id number] 3 ALVARADO ESTRELLA F 2021 45 [facility] MIRTAZAPINE 30MG TAB TAKE ONE AND ONE-HALF TABLETS BY MOUTH AT BEDTIME FOR DEPRESSI ON ORALLY ACTIVE 12/17/2023 [id number] 3 RAMIRO BENEDICT 2022 [address] [facility] MIRTAZAPINE 30MG TAB TAKE ONE AND ONE-HALF TABLETS BY MOUTH AT BEDTIME FOR DEPRESSI ON ORALLY DISCONT INUED 06/10/2023 [id number] 3 RAMIRO BENEDICT 2022 135 [facility] MIRTAZAPINE 30MG TAB TAKE ONE AND ONE-HALF TABLETS BY MOUTH AT BEDTIME FOR DEPRESSI ON ORALLY DISCONT INUED 12/13/2022 [id number] 3 RAMIRO BENEDICT 2021 135 [facility] MULTIVIT/OP HTH AREDS2/LUTE IN/ZEAXANTH IN CAP/TAB TAKE 1 CAP/TAB BY MOUTH TWICE A DAY FOR MACULAR DEGENERA TION ORALLY ACTIVE 01/24/2024 [id number] 4 ALVARADO ESTRELLA LSEY F 2022 120 [facility] MULTIVIT/OP HTH AREDS2/LUTE IN/ZEAXANTH IN CAP/TAB TAKE 1 CAP/TAB BY MOUTH TWICE A DAY FOR MACULAR DEGENERA TION ORALLY DISCONT INUED 01/11/2023 [id number] 3 ALVARADO ESTRELLA LSEY F 2021 120 [facility] NIACIN (SLO-NIACIN ) 500MG TAB,SA TAKE ONE TABLET BY MOUTH EVERY DAY FOR HIGH CHOLESTE ROL ORALLY ACTIVE 02/20/2024 [id number] 3 ALVARADO ESTRELLA LSEY F 2022 100 [facility] NIACIN (SLO-NIACIN ) 500MG TAB,SA TAKE ONE TABLET BY MOUTH EVERY DAY FOR HIGH CHOLESTE ROL ORALLY DISCONT INUED 11/16/2022 [id number] 3 ALVARADO ESTRELLA LSEY F 2021 100 [facility] ROSUVASTATI N CA 40MG TAB TAKE ONE-HALF TABLET BY MOUTH EVERY DAY FOR CHOLESTE ROL (DO NOT CONVERT) ORALLY ACTIVE 08/15/2023 [id number] 4 DELORESALVARADO AYALAEY F 2022 45 [facility] ROSUVASTATI N CA 40MG TAB TAKE ONE-HALF TABLET BY MOUTH EVERY DAY FOR CHOLESTE ROL (DO NOT CONVERT) ORALLY DISCONT INUED 11/16/2022 [id number] 3 ALVARADO ESTRELLAEY F 2021 45 [facility] TRIAMCINOLO NE ACETONIDE 0.1% CREAM,TOP APPLY THIN LAYER TOPICALL Y TWICE A DAY FOR RASH FOR 2 TO 4 WEEKS UNTIL IMPROVED TOPICA LLY ACTIVE 02/20/2024 [id number] 3 ALVARADO ESTRELLAEY F 2022 80 [facility] VARENICLINE 1MG TAB TAKE ONE-HALF TABLET BY MOUTH EVERY DAY FOR 3 DAYS, THEN TAKE ONE-HALF TABLET TWICE A DAY FOR 4 DAYS, THEN TAKE ONE TABLET TWICE A DAY TO QUIT TOBACCO ORALLY ACTIVE 03/10/2024 [id number] DOC CASH 2022 56 [facility] Immunizations Combined list of available immunizations from the Department of Defense and Veterans Affairs facilities. Immunization Series Date Given Administered By Site Reaction Lot Number CVX Code Drug Desolderer Status Comments Source INFLUENZA, HIGH-DOSE, QUADRIVALENT 2022 GAVINO JESSICA E LEFT DELTO ID [id number] 197 complet ed [facility] INFLUENZA VACCINE, QUADRIVALENT, ADJUVANTED 2021 205 complet ed [facility] ZOSTER RECOMBINANT 2 2021 187 complet ed [facility] ZOSTER RECOMBINANT 1 2021 187 complet ed [facility] COVID-19 (RAYSA), VECTOR-NR, [id number], PF, 0.5 ML 1 2021 212 complet ed [facility] TDAP 2017 115 complet ed [facility] PNEUMOCOCCAL POLYSACCHARID E PPV23 2017 33 complet ed [employer] [id number], 9 [facility] PNEUMOCOCCAL CONJUGATE PCV 13 2016 133 complet ed [facility] TDAP 2016 115 complet ed [facility] INFLUENZA, HIGH DOSE SEASONAL 2015 135 complet ed [facility] INFLUENZA, UNSPECIFIED FORMULATION 2012 88 complet ed [facility] INFLUENZA, UNSPECIFIED FORMULATION 2011 88 complet ed [facility] ZOSTER LIVE 2011 121 complet ed [employer] [id number] exp [id number] [facility] INFLUENZA, UNSPECIFIED FORMULATION 2010 88 complet ed [facility] INFLUENZA, UNSPECIFIED FORMULATION 2009 88 complet ed [facility] PNEUMOCOCCAL, UNSPECIFIED FORMULATION 2009 109 complet ed [employer] [id number] 06-02-2011 [facility] INFLUENZA, UNSPECIFIED FORMULATION 2008 88 complet ed [facility] INFLUENZA, UNSPECIFIED FORMULATION 2007 88 complet ed [facility] INFLUENZA, UNSPECIFIED FORMULATION 2006 IMANPOUR,ALIC E E 88 complet ed [facility] TD(ADULT) UNSPECIFIED FORMULATION 2006 IMANPOUR,ALIC E E 139 complet ed [facility] Results Combined list of recent chemistry, hematology and other laboratory results from Department of Defense and Veterans Affairs, ranging from 15 months to all on record, depending upon the facility. Order Name Results Value Reference Range Date Interpretation Specimen Comments Source HEMOGLOB IN A1C HEMOGLOBIN A1C/HEMOGL OBIN.TOTAL IN BLOOD 5.6 4.0 - 6.0 02/19 Specimen Type: BLOOD Comment: Values obtained from A1C measurement s can vary. For typical A1C assays, a reported value of 7.0 could actually be between 6.7 and 7.3 if measured by a reference method. A reported value of 9.0 could actually be between 8.7 and 9.3. Ref: http://www. ngsp.org/[place] Pdata.asp Ordering Provider: HILLARY ESTRELLA Report Released Date/Time: Nov 26, 2021 02:17 PM Reporting Lab: [facility] [address] Performing Lab: [facility] [address] [place] [facility] LIPID PANEL,NO N-FASTIN G CHOLESTERO L [MASS/VOLU ME] IN SERUM OR PLASMA 179 <199 - 199 02/19 Specimen Type: PLASMA No comment entered. Ordering Provider: HILLARY ESTRELLA Report Released Date/Time: Nov 26, 2021 02:17 PM Reporting Lab: [facility] [address] Performing Lab: [facility] [address] [place] [facility] LIPID PANEL,NO N-FASTIN G CHOLESTERO L IN HDL [MASS/VOLU ME] IN SERUM OR PLASMA 39 40 02/19 L Specimen Type: PLASMA No comment entered. Ordering Provider: HILLARY ESTRELLA Report Released Date/Time: Nov 26, 2021 02:17 PM Reporting Lab: [facility] [address] Performing Lab: [facility] [address] [place] [facility] LIPID PANEL,NO N-FASTIN G CHOLESTERO L IN LDL [MASS/VOLU ME] IN SERUM OR PLASMA BY CALCULATIO N 116 <99 - 99 02/19 H Specimen Type: PLASMA No comment entered. Ordering Provider: HILLARY ESTRELLA Report Released Date/Time: Nov 26, 2021 02:17 PM Reporting Lab: [facility] [address] Performing Lab: [facility] [address] [place] [facility] LIPID PANEL,NO N-FASTIN G CHOLESTERO L IN VLDL [MASS/VOLU ME] IN SERUM OR PLASMA BY CALCULATIO N 24 <29 - 29 02/19 Specimen Type: PLASMA No comment entered. Ordering Provider: HILLARY ESTRELLA Report Released Date/Time: Nov 26, 2021 02:17 PM Reporting Lab: [facility] [address] Performing Lab: [facility] [address] [place] [facility] LIPID PANEL,NO N-FASTIN G CHOLESTERO L NON HDL [MASS/VOLU ME] IN SERUM OR PLASMA 140 <129 - 129 02/19 H Specimen Type: PLASMA No comment entered. Ordering Provider: HILLARY ESTRELLA Report Released Date/Time: Nov 26, 2021 02:17 PM Reporting Lab: [facility] [address] Performing Lab: [facility] [address] [place] [facility] LIPID PANEL,NO N-FASTIN G TRIGLYCERI DE [MASS/VOLU ME] IN SERUM OR PLASMA 118 <149 - 149 02/19 Specimen Type: PLASMA No comment entered. Ordering Provider: HILLARY ESTRELLA Report Released Date/Time: Nov 26, 2021 02:17 PM Reporting Lab: [facility] [address] Performing Lab: [facility] [address] [place] [facility] BASIC METABOLI C PANEL+MG CREATININE [MASS/VOLU ME] IN SERUM OR PLASMA 1.0 0.7 - 1.2 02/19 Specimen Type: PLASMA No comment entered. Ordering Provider: HILLARY ESTRELLA Report Released Date/Time: Nov 26, 2021 02:17 PM Reporting Lab: [facility] [address] Performing Lab: [facility] [address] [place] [facility] BASIC METABOLI C PANEL+MG UREA NITROGEN [MASS/VOLU ME] IN SERUM OR PLASMA 14 8 - 26 02/19 Specimen Type: PLASMA No comment entered. Ordering Provider: HILLARY ESTRELLA Report Released Date/Time: Nov 26, 2021 02:17 PM Reporting Lab: [facility] [address] Performing Lab: [facility] [address] [place] [facility] BASIC METABOLI C PANEL+MG GLUCOSE [MASS/VOLU ME] IN SERUM OR PLASMA 104 70 - 100 02/19 H Specimen Type: PLASMA No comment entered. Ordering Provider: HILLARY ESTRELLA Report Released Date/Time: Nov 26, 2021 02:17 PM Reporting Lab: [facility] [address] Performing Lab: [facility] [address] [place] [facility] BASIC METABOLI C PANEL+MG SODIUM [MOLES/VOL UME] IN SERUM OR PLASMA 139 136 - 145 02/19 Specimen Type: PLASMA No comment entered. Ordering Provider: HILLARY ESTRELLA Report Released Date/Time: Nov 26, 2021 02:17 PM Reporting Lab: [facility] [address] Performing Lab: [facility] [address] [place] [facility] BASIC METABOLI C PANEL+MG POTASSIUM [MOLES/VOL UME] IN SERUM OR PLASMA 3.9 3.5 - 5.1 02/19 Specimen Type: PLASMA No comment entered. Ordering Provider: HILLARY ESTRELLA Report Released Date/Time: Nov 26, 2021 02:17 PM Reporting Lab: [facility] [address] Performing Lab: [facility] [address] [place] [facility] BASIC METABOLI C PANEL+MG CHLORIDE [MOLES/VOL UME] IN SERUM OR PLASMA 104 98 - 107 02/19 Specimen Type: PLASMA No comment entered. Ordering Provider: HILLARY ESTRELLA Report Released Date/Time: Nov 26, 2021 02:17 PM Reporting Lab: [facility] [address] Performing Lab: [facility] [address] [place] [facility] BASIC METABOLI C PANEL+MG CARBON DIOXIDE, TOTAL [MOLES/VOL UME] IN SERUM OR PLASMA 25 22 - 29 02/19 Specimen Type: PLASMA No comment entered. Ordering Provider: HILLARY ESTRELLA Report Released Date/Time: Nov 26, 2021 02:17 PM Reporting Lab: [facility] [address] Performing Lab: [facility] [address] [place] [facility] BASIC METABOLI C PANEL+MG CALCIUM [MASS/VOLU ME] IN SERUM OR PLASMA 9.5 8.4 - 10.2 02/19 Specimen Type: PLASMA No comment entered. Ordering Provider: HILLARY ESTRELLA Report Released Date/Time: Nov 26, 2021 02:17 PM Reporting Lab: [facility] [address] Performing Lab: [facility] [address] [place] [facility] BASIC METABOLI C PANEL+MG MAGNESIUM [MASS/VOLU ME] IN SERUM OR PLASMA 1.8 1.6 - 2.6 02/19 Specimen Type: PLASMA No comment entered. Ordering Provider: HILLARY ESTRELLA Report Released Date/Time: Nov 26, 2021 02:17 PM Reporting Lab: [facility] [address] Performing Lab: [facility] [address] [place] [facility] BASIC METABOLI C PANEL+MG ANION GAP IN SERUM OR PLASMA 10 5 - 15 02/19 Specimen Type: PLASMA No comment entered. Ordering Provider: HILLARY ESTRELLA Report Released Date/Time: Nov 26, 2021 02:17 PM Reporting Lab: [facility] [address] Performing Lab: [facility] [address] [place] [facility] BASIC METABOLI C PANEL+MG GLOMERULAR FILTRATION RATE/1.73 SQ M.PREDICTE D [VOLUME RATE/AREA] IN SERUM, PLASMA OR BLOOD BY CREATININE -BASED FORMULA (CKD-EPI 2020) 79 60 02/19 Specimen Type: PLASMA No comment entered. Ordering Provider: HILLARY ESTRELLA Report Released Date/Time: Nov 26, 2021 02:17 PM Reporting Lab: [facility] [address] Performing Lab: [facility] [address] [place] [facility] POC CREATINI NE CREATININE [MASS/VOLU ME] IN BLOOD 1.3 0.6 - 1.3 12/12 Specimen Type: BLOOD No comment entered. Ordering Provider: HILLARY ESTRELLA Report Released Date/Time: Dec 12, 2022 02:06 PM Reporting Lab: [facility] [address] Performing Lab: [facility] [address] [place] [facility] URINALYS IS COLOR OF URINE LIGHT-YE LLOW 02/18 Specimen Type: URINE No comment entered. Ordering Provider: HILLARY ESTRELLA Report Released Date/Time: Jan 22, 2022 04:22 PM Reporting Lab: [facility] [address] Performing Lab: [facility] [address] [place] [facility] URINALYS IS SPECIFIC GRAVITY OF URINE 1.009 1.003 - 1.035 02/18 Specimen Type: URINE No comment entered. Ordering Provider: HILLARY ESTRELLA Report Released Date/Time: Jan 22, 2022 04:22 PM Reporting Lab: [facility] [address] Performing Lab: [facility] [address] [place] [facility] URINALYS IS BILIRUBIN. TOTAL [PRESENCE] IN URINE BY TEST STRIP NEGATIVE 02/18 Specimen Type: URINE No comment entered. Ordering Provider: HILLARY ESTRELLA Report Released Date/Time: Jan 22, 2022 04:22 PM Reporting Lab: [facility] [address] Performing Lab: [facility] [address] [place] [facility] URINALYS IS KETONES [MASS/VOLU ME] IN URINE BY TEST STRIP NEGATIVE 02/18 Specimen Type: URINE No comment entered. Ordering Provider: HILLARY ESTRELLA Report Released Date/Time: Jan 22, 2022 04:22 PM Reporting Lab: [facility] [address] Performing Lab: [facility] [address] [place] [facility] URINALYS IS GLUCOSE [MASS/VOLU ME] IN URINE BY TEST STRIP NEGATIVE <30 - 30 02/18 Specimen Type: URINE No comment entered. Ordering Provider: HILLARY ESTRELLA Report Released Date/Time: Jan 22, 2022 04:22 PM Reporting Lab: [facility] [address] Performing Lab: [facility] [address] [place] [facility] URINALYS IS PROTEIN [MASS/VOLU ME] IN URINE BY TEST STRIP NEGATIVE <20 - 20 02/18 Specimen Type: URINE No comment entered. Ordering Provider: HILLARY ESTRELLA Report Released Date/Time: Jan 22, 2022 04:22 PM Reporting Lab: [facility] [address] Performing Lab: [facility] [address] [place] [facility] URINALYS IS PH OF URINE BY TEST STRIP 6.0 5.0 - 8.0 02/18 Specimen Type: URINE No comment entered. Ordering Provider: HILLARY ESTRELLA Report Released Date/Time: Jan 22, 2022 04:22 PM Reporting Lab: [facility] [address] Performing Lab: [facility] [address] [place] [facility] URINALYS IS LEUKOCYTES [#/AREA] IN URINE SEDIMENT BY MICROSCOPY HIGH POWER FIELD 1 0 - 7 02/18 Specimen Type: URINE No comment entered. Ordering Provider: HILLARY ESTRELLA Report Released Date/Time: Jan 22, 2022 04:22 PM Reporting Lab: [facility] [address] Performing Lab: [facility] [address] [place] [facility] URINALYS IS BACTERIA [PRESENCE] IN URINE SEDIMENT BY LIGHT MICROSCOPY NONE SEEN 02/18 Specimen Type: URINE No comment entered. Ordering Provider: HILLARY ESTRELLA Report Released Date/Time: Jan 22, 2022 04:22 PM Reporting Lab: [facility] [address] Performing Lab: [facility] [address] [place] [facility] URINALYS IS ERYTHROCYT ES [#/AREA] IN URINE SEDIMENT BY MICROSCOPY HIGH POWER FIELD 2 0 - 3 02/18 Specimen Type: URINE No comment entered. Ordering Provider: HILLARY ESTRELLA Report Released Date/Time: Jan 22, 2022 04:22 PM Reporting Lab: [facility] [address] Performing Lab: [facility] [address] [place] [facility] URINALYS IS APPEARANCE OF URINE CLEAR 02/18 Specimen Type: URINE No comment entered. Ordering Provider: HILLARY ESTRELLA Report Released Date/Time: Jan 22, 2022 04:22 PM Reporting Lab: [facility] [address] Performing Lab: [facility] [address] [place] [facility] URINALYS IS EPITHELIAL CELLS.SQUA MOUS [#/AREA] IN URINE SEDIMENT BY MICROSCOPY HIGH POWER FIELD NONE SEEN 02/18 Specimen Type: URINE No comment entered. Ordering Provider: HILLARY ESTRELLA Report Released Date/Time: Jan 22, 2022 04:22 PM Reporting Lab: [facility] [address] Performing Lab: [facility] [address] [place] [facility] URINALYS IS HEMOGLOBIN [PRESENCE] IN URINE BY TEST STRIP NEGATIVE 02/18 Specimen Type: URINE No comment entered. Ordering Provider: HILLARY ESTRELLA Report Released Date/Time: Jan 22, 2022 04:22 PM Reporting Lab: [facility] [address] Performing Lab: [facility] [address] [place] [facility] URINALYS IS NITRITE [PRESENCE] IN URINE BY TEST STRIP NEGATIVE 02/18 Specimen Type: URINE No comment entered. Ordering Provider: HILLARY ESTRELLA Report Released Date/Time: Jan 22, 2022 04:22 PM Reporting Lab: [facility] [address] Performing Lab: [facility] [address] [place] [facility] URINALYS IS LEUKOCYTE ESTERASE [PRESENCE] IN URINE BY TEST STRIP NEGATIVE 02/18 Specimen Type: URINE No comment entered. Ordering Provider: HILLARY ESTRELLA Report Released Date/Time: Jan 22, 2022 04:22 PM Reporting Lab: [facility] [address] Performing Lab: [facility] [address] [place] [facility] URINALYS IS COLOR OF URINE LIGHT-YE LLOW 01/21 Specimen Type: URINE No comment entered. Ordering Provider: HILLARY ESTRELLA Report Released Date/Time: Jan 15, 2022 04:24 PM Reporting Lab: [facility] [address] Performing Lab: [facility] [address] [place] [facility] URINALYS IS SPECIFIC GRAVITY OF URINE 1.011 1.003 - 1.035 01/21 Specimen Type: URINE No comment entered. Ordering Provider: HILLARY ESTRELLA Report Released Date/Time: Jan 15, 2022 04:24 PM Reporting Lab: [facility] [address] Performing Lab: [facility] [address] [place] [facility] URINALYS IS BILIRUBIN. TOTAL [PRESENCE] IN URINE BY TEST STRIP NEGATIVE 01/21 Specimen Type: URINE No comment entered. Ordering Provider: HILLARY ESTRELLA Report Released Date/Time: Jan 15, 2022 04:24 PM Reporting Lab: [facility] [address] Performing Lab: [facility] [address] [place] [facility] URINALYS IS KETONES [MASS/VOLU ME] IN URINE BY TEST STRIP NEGATIVE 01/21 Specimen Type: URINE No comment entered. Ordering Provider: HILLARY ESTRELLA Report Released Date/Time: Jan 15, 2022 04:24 PM Reporting Lab: [facility] [address] Performing Lab: [facility] [address] [place] [facility] URINALYS IS GLUCOSE [MASS/VOLU ME] IN URINE BY TEST STRIP NEGATIVE 01/21 Specimen Type: URINE No comment entered. Ordering Provider: HILLARY ESTRELLA Report Released Date/Time: Jan 15, 2022 04:24 PM Reporting Lab: [facility] [address] Performing Lab: [facility] [address] [place] [facility] URINALYS IS PROTEIN [MASS/VOLU ME] IN URINE BY TEST STRIP NEGATIVE 01/21 Specimen Type: URINE No comment entered. Ordering Provider: HILLARY ESTRELLA Report Released Date/Time: Jan 15, 2022 04:24 PM Reporting Lab: [facility] [address] Performing Lab: [facility] HEALTH [address] [place] [facility] URINALYS IS PH OF URINE BY TEST STRIP 6.5 5.0 - 8.0 01/21 Specimen Type: URINE No comment entered. Ordering Provider: HILLARY ESTRELLA Report Released Date/Time: Jan 15, 2022 04:24 PM Reporting Lab: [facility] [address] Performing Lab: [facility] [address] [place] [facility] URINALYS IS LEUKOCYTES [#/AREA] IN URINE SEDIMENT BY MICROSCOPY HIGH POWER FIELD 4 0 - 7 01/21 Specimen Type: URINE No comment entered. Ordering Provider: HILLARY ESTRELLA Report Released Date/Time: Jan 15, 2022 04:24 PM Reporting Lab: [facility] [address] Performing Lab: [facility] [address] [place] [facility] URINALYS IS BACTERIA [PRESENCE] IN URINE SEDIMENT BY LIGHT MICROSCOPY NONE SEEN 01/21 Specimen Type: URINE No comment entered. Ordering Provider: HILLARY ESTRELLA Report Released Date/Time: Jan 15, 2022 04:24 PM Reporting Lab: [facility] [address] Performing Lab: [facility] [address] [place] [facility] URINALYS IS ERYTHROCYT ES [#/AREA] IN URINE SEDIMENT BY MICROSCOPY HIGH POWER FIELD 49 0 - 3 01/21 H Specimen Type: URINE No comment entered. Ordering Provider: HILLARY ESTRELLA Report Released Date/Time: Jan 15, 2022 04:24 PM Reporting Lab: [facility] [address] Performing Lab: [facility] [address] [place] [facility] URINALYS IS APPEARANCE OF URINE CLEAR 01/21 Specimen Type: URINE No comment entered. Ordering Provider: HILLARY ESTRELLA Report Released Date/Time: Jan 15, 2022 04:24 PM Reporting Lab: [facility] [address] Performing Lab: [facility] [address] [place] [facility] URINALYS IS EPITHELIAL CELLS.SQUA MOUS [#/AREA] IN URINE SEDIMENT BY MICROSCOPY HIGH POWER FIELD NONE SEEN 01/21 Specimen Type: URINE No comment entered. Ordering Provider: HILLARY ESTRELLA Report Released Date/Time: Jan 15, 2022 04:24 PM Reporting Lab: [facility] [address] Performing Lab: [facility] [address] [place] [facility] URINALYS IS HEMOGLOBIN [PRESENCE] IN URINE BY TEST STRIP 2+ 01/21 Specimen Type: URINE No comment entered. Ordering Provider: HILLARY ESTRELLA Report Released Date/Time: Jan 15, 2022 04:24 PM Reporting Lab: [facility] [address] Performing Lab: [facility] [address] [place] [facility] URINALYS IS NITRITE [PRESENCE] IN URINE BY TEST STRIP NEGATIVE 01/21 Specimen Type: URINE No comment entered. Ordering Provider: HILLARY ESTRELLA Report Released Date/Time: Jan 15, 2022 04:24 PM Reporting Lab: [facility] [address] Performing Lab: [facility] [address] [place] [facility] URINALYS IS LEUKOCYTE ESTERASE [PRESENCE] IN URINE BY TEST STRIP NEGATIVE 01/21 Specimen Type: URINE No comment entered. Ordering Provider: HILLARY ESTRELLA Report Released Date/Time: Jan 15, 2022 04:24 PM Reporting Lab: [facility] [address] Performing Lab: [facility] [address] [place] [facility] SODIUM,U RINE RANDOM SODIUM [MOLES/VOL UME] IN URINE 118 01/21 Specimen Type: URINE No comment entered. Ordering Provider: HILLARY ESTRELLA Report Released Date/Time: Jan 15, 2022 04:24 PM Reporting Lab: [facility] [address] Performing Lab: [facility] [address] [place] [facility] BASIC METABOLI C PANEL+MG CREATININE [MASS/VOLU ME] IN SERUM OR PLASMA 1.1 0.7 - 1.2 08/15 Specimen Type: PLASMA No comment entered. Ordering Provider: HILLARY ESTRELLA Report Released Date/Time: Jul 15, 2021 02:05 PM Reporting Lab: [facility] [address] Performing Lab: [facility] [address] [place] [facility] BASIC METABOLI C PANEL+MG UREA NITROGEN [MASS/VOLU ME] IN SERUM OR PLASMA 13 8 - 26 08/15 Specimen Type: PLASMA No comment entered. Ordering Provider: HILLARY ESTRELLA Report Released Date/Time: Jul 15, 2021 02:05 PM Reporting Lab: [facility] [address] Performing Lab: [facility] [address] [place] [facility] BASIC METABOLI C PANEL+MG GLUCOSE [MASS/VOLU ME] IN SERUM OR PLASMA 105 74 - 100 08/15 H Specimen Type: PLASMA No comment entered. Ordering Provider: HILLARY ESTRELLA Report Released Date/Time: Jul 15, 2021 02:05 PM Reporting Lab: [facility] [address] Performing Lab: [facility] [address] [place] [facility] BASIC METABOLI C PANEL+MG SODIUM [MOLES/VOL UME] IN SERUM OR PLASMA 137 136 - 145 08/15 Specimen Type: PLASMA No comment entered. Ordering Provider: HILLARY ESTRELLA Report Released Date/Time: Jul 15, 2021 02:05 PM Reporting Lab: [facility] [address] Performing Lab: [facility] [address] [place] [facility] BASIC METABOLI C PANEL+MG POTASSIUM [MOLES/VOL UME] IN SERUM OR PLASMA 4.1 3.5 - 5.1 08/15 Specimen Type: PLASMA No comment entered. Ordering Provider: HILLARY ESTRELLA Report Released Date/Time: Jul 15, 2021 02:05 PM Reporting Lab: [facility] [address] Performing Lab: [facility] [address] [place] [facility] BASIC METABOLI C PANEL+MG CHLORIDE [MOLES/VOL UME] IN SERUM OR PLASMA 105 98 - 107 08/15 Specimen Type: PLASMA No comment entered. Ordering Provider: HILLARY ESTRELLA Report Released Date/Time: Jul 15, 2021 02:05 PM Reporting Lab: [facility] [address] Performing Lab: [facility] [address] [place] [facility] BASIC METABOLI C PANEL+MG CARBON DIOXIDE, TOTAL [MOLES/VOL UME] IN SERUM OR PLASMA 24 22 - 29 08/15 Specimen Type: PLASMA No comment entered. Ordering Provider: HILLARY ESTRELLA Report Released Date/Time: Jul 15, 2021 02:05 PM Reporting Lab: [facility] [address] Performing Lab: [facility] [address] [place] [facility] BASIC METABOLI C PANEL+MG CALCIUM [MASS/VOLU ME] IN SERUM OR PLASMA 9.1 8.4 - 10.2 08/15 Specimen Type: PLASMA No comment entered. Ordering Provider: HILLARY ESTRELLA Report Released Date/Time: Jul 15, 2021 02:05 PM Reporting Lab: [facility] [address] Performing Lab: [facility] [address] [place] [facility] BASIC METABOLI C PANEL+MG MAGNESIUM [MASS/VOLU ME] IN SERUM OR PLASMA 2.1 1.6 - 2.6 08/15 Specimen Type: PLASMA No comment entered. Ordering Provider: HILLARY ESTRELLA Report Released Date/Time: Jul 15, 2021 02:05 PM Reporting Lab: [facility] [address] Performing Lab: [facility] [address] [place] [facility] BASIC METABOLI C PANEL+MG ANION GAP IN SERUM OR PLASMA 8 5 - 15 08/15 Specimen Type: PLASMA No comment entered. Ordering Provider: HILLARY ESTRELLA Report Released Date/Time: Jul 15, 2021 02:05 PM Reporting Lab: [facility] [address] Performing Lab: [facility] [address] [place] [facility] BASIC METABOLI C PANEL+MG CREAT EGFR(CKD-E PI) 71 60 08/15 Specimen Type: PLASMA No comment entered. Ordering Provider: HILLARY ESTRELLA Report Released Date/Time: Jul 15, 2021 02:05 PM Reporting Lab: [facility] [address] Performing Lab: [facility] [address] [place] [facility] Vital Signs Combined list of inpatient and outpatient Vital Signs from Department of Defense and Veterans Affairs, ranging from 12 months to all on record, depending upon the facility. Vital Sign Value Date Comments Source Encounters Combined list of: 1) Encounters from Department of Veterans Affairs facilities going back up to thelast 18 months. 2) Encounters from the Department of [facility] facilities going back up to 280 months. Location Location Details Encounter Type Encounter Number Reason For Visit Attending Provider ADM Date DC Date Status Disposition Source [place] [facility] [place]AT[place] ADMIN [id number] Diagnos is: ICD-10- CM Z23 Encount er for immuniz ation<b r/> YOLANDA ESTRELLA 01/28 [facility] Outpatient Encounter [id number] 02/18 [facility] OFFICE O/P EST MINIMAL PROB [id number] Diagnos is: ICD-10- CM Z02.89 Encount er for other adminis trative examina tions<b r/> NICOLASA RICKETTS 02/18 [facility] OFFICE O/P EST HI 40-54 MIN [id number] Diagnos is: ICD-10- CM F32.9 Major depress sepideh disorde r, single episode , unspeci fied
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
BRIANCCWILLIAMSP DEDE FAN 02/18 [facility] Outpatient Encounter [id number] ANDREW DENISE 03/10 [facility] PSYTX W PT 45 MINUTES [id number] Diagnos is: ICD-10- CM F43.12 Post-tr aumatic stress disorde r, chronic
ANDREW DENISE 03/11 [facility] [place] [facility] Outpatient Encounter [id number] ANDREW DENISE 04/14 [place] [facility] Outpatient Encounter [id number] Diagnos is: ICD-10- CM F32.9 Major depress sepideh disorde r, single episode , unspeci fied
YOLANDA ESTRELLA TREVA F 04/18 [facility] Outpatient Encounter [id number] Diagnos is: ICD-10- CM I71.30 Abdomin al aortic aneurys m, rupture d, unspeci fied
ORECCHIA,P AUL MITA 05/30 [facility] Outpatient Encounter [id number] ANDREW DENISE 06/06 [facility] PSYTX W PT W E/M 30 MIN [id number] Diagnos is: ICD-10- CM F32.9 Major depress sepideh disorde r, single episode , unspeci fied
Stephanie BENEDICT M 06/09 [facility] PSYTX W PT 30 MINUTES [id number] Diagnos is: ICD-10- CM F43.12 Post-tr aumatic stress disorde r, chronic
ANDREW DENISE 06/09 [facility] Outpatient Encounter [id number] ANDREW DENISE 06/09 [facility] Outpatient Encounter [id number] 10/29 [place] [facility] Outpatient Encounter [id number] ANDREW DENISE 12/02 [facility] PSYTX W PT 30 MINUTES [id number] Diagnos is: ICD-10- CM F43.12 Post-tr aumatic stress disorde r, chronic
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
ORECCHIA,P AUL MITA 12/02 [facility] TTE W/DOPPLER COMPLETE [id number] Diagnos is: ICD-10- CM I95.9 Hypoten anneliese, unspeci fied
SHARON FERNANDOI 12/10 [facility] Outpatient Encounter [id number] 12/12 [facility] Outpatient Encounter [id number] YOLANDA ESTRELLA 12/15 [facility] OFFICE O/P EST MOD 30-39 MIN [id number] Diagnos is: ICD-10- CM F43.10 Post-tr aumatic stress disorde r, unspeci fied
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
ORECCHIA,P AUL MITA 01/06 [facility] Outpatient Encounter [id number] 02/19 [facility] OFFICE O/P EST HI 40-54 MIN [id number] Diagnos is: ICD-10- CM I10 Essenti al (primar y) hyperte nsion<b r/> YOLANDA ESTRELLA F 02/19 [facility] PRO PHONE CALL 11-20 MIN [id number] Diagnos is: ICD-10- CM F17.210 Nicotin e depende nce, cigaret anil, uncompl icated< br/> DOC CARLSON 03/10 [facility] Outpatient Encounter [id number] 03/17 [facility] PSYTX W PT W E/M 30 MIN [id number] Diagnos is: ICD-10- CM F32.9 Major depress sepideh disorde r, single episode , unspeci fied
Stephanie BENEDICT M 03/17 [facility] MTMS BY PHARM EST 15 MIN [id number] Diagnos is: ICD-10- CM F17.210 Nicotin e depende nce, cigaret anil, uncompl icated< br/> DOC CARLSON 04/14 [facility] MTMS BY PHARM EST 15 MIN [id number] Diagnos is: ICD-10- CM F17.210 Nicotin e depende nce, cigaret anil, uncompl icated< br/> DOC CRALSON 05/28 [facility] Social History Combined list of available smoking, tobacco, and other social history from Department of Defense and [facility] Affairs facilities. Social History Type Response Date Comment Sourc e Tobacco smoking status NHIS VA-TOBACCO USER EVERY DAY 06/09/2022 [facility] History of tobacco use VA-TOBACCO USE WI 30 MIN OF WAKEUP 06/09/2022 [facility] History of tobacco use VA-TOBACCO USER E VERY DAY 07/15/2021 [facility] History of tobacco use VA-TOBACCO FORMER USER 12/14/2019 [facility] History of tobacco use SD-TOBACCO DOESNT USE WI 30 MIN WAKEUP 12/15/2017 [facility] History of tobacco use CURRENT TOBACCO USER 06/30/2017 [facility] History of tobacco use CURRENT TOBACCO USER 06/05/2016 [facility] History of tobacco use CURRENT TOBACCO USER 12/07/2013 [facility] History of tobacco use CURRENT TOBACCO USER 12/15/2012 [facility] History of tobacco use CURRENT TOBACCO USER 01/23/2012 [facility] History of tobacco use CURRENT TOBACCO USER 01/15/2011 [facility] History of tobacco use CURRENT TOBACCO USER 01/17/2010 [facility] History of tobacco use CURRENT TOBACCO USER 01/12/2009 [facility] History of tobacco use CURRENT TOBACCO USER 03/14/2008 [facility] History of tobacco use CURRENT TOBACCO USER 04/19/2007 [facility] History of tobacco use CURRENT TOBACCO USER 07/14/2006 [facility] Plan of Care List of future care activities from [facility] facilities. Additional future care activities may be listed in the Assessment and Plan section. Date/Time Care Activity Care Activity Detail Facili ty 01/05/2024 AMBULATORY - SURGERY AMBULATORY - SURGERY [facility] 08/18/2023 Laboratory - Chemistry Order BAS IC METABOLIC PANEL+MG PLASMA SP ONCE [facility] 08/18/2023 Laboratory - Chemistry Order HEM OGLOBIN A1C BLOOD SP ONCE [facility] 08/18/2023 Laboratory - Chemistry Order LIP ID PANEL,NON-FASTING PLASMA SP ONCE [facility] Advance Directives List of completed, amended, or rescinded Advance Directives on record at [facility] facilities. An actual copy of the Directive is not included. Date Advance Directive Provider Source 02/01/2007 ADVANCE DIRECTIVE JOHN MARIEE [facility]
[2023-07-24] MEDS: IPRAT-ALBUT 0.5-2.5 MG/3 ML NEB 1 NEB IH (12:37)
[2023-07-24 12:43] LABS: HCO3 VBG 27 mmol/L (21-28); PCO2 VBG 48 mmHG (40-50); PO2 VBG < 30.1 mmHG (25-47); pH VBG 7.362 (7.32-7.43)
[2023-07-24 12:44] LABS: Basophils Absolute Auto 0.01 K/uL (0.00-0.30); Basophils Percent Auto 0.1 % (0.0-3.0); Hematocrit 42.7 % (37.0-53.0); Hemoglobin* 13.9 gm/dL (13.5-17.5); Immature Granulocytes Abs Auto 0.01 K/uL (0.00-0.30); Immature Granulocytes Pct Auto 0.1 %; Lymphocytes Percent Auto 6.8 % (20-44); Mean Corpuscular HGB Conc 33 gm/dL (32-36); Mean Corpuscular Hemoglobin 28 pg (26-34); Mean Corpuscular Volume 87 fL (80-100); Monocytes Percent Auto 12.7 % (0.0-11.0); Neutrophils Percent Auto 80.3 % (42.0-72.0); Platelet Count* 143 K/uL (140-440); RDW Coefficient of Variation % 14.3 % (11.5-15.5); Red Blood Count 4.93 m/uL (4.30-5.90); White Blood Count* 9.29 K/uL (4.50-11.00)
[2023-07-24 12:51] LABS: Slide Review Reflex No
[2023-07-24 13:01] LABS: Chloride* 104 mmol/L (96-114); Sodium* 134 mmol/L (135-149)
[2023-07-24 13:03] LABS: Albumin* 3.9 g/dL (3.3-5.0)
[2023-07-24 13:04] LABS: Creatinine* 0.9 mg/dL (0.5-1.5); Est. Creatinine Clearance* 71.13; Estimated Glomerular Filt Rate 90 ml/min
[2023-07-24 13:05] LABS: Anion Gap 4 mEq/L (7-15); Aspartate Amino Transferase* 23 U/L (12-35); Bilirubin Direct* 0.2 mg/dL (0.0-0.5); Bilirubin Total* 0.6 mg/dL (0.1-1.5); Blood Urea Nitrogen* 17 mg/dL (7-30); Calcium* 8.4 mg/dL (8.4-10.6); Carbon Dioxide* 26 mmol/L (20-32); Glucose* 106 mg/dL (60-115); Total Protein* 7.2 g/dL (6.0-8.3)
[2023-07-24 13:06] LABS: Alanine Aminotransferase* 11 U/L (4-50); Alkaline Phosphatase* 72 U/L (40-150)
[2023-07-24 13:07] LABS: D Dimer Quantitative* 1.26 ug/ml (0.00-0.50); Ethanol* < 0.01 % (0.01-0.03)
[2023-07-24 13:25] LABS: C Reactive Protein* 14.9 mg/dL (0.5-1.0); NT Pro B Type NatriureticPept* 658 pg/mL
--- NOTE | 2023-07-24 13:50 | CT_ITS ---
Patient: RASHMI SHEFFIELD Facility:?[facility] Patient ID:?[id number] Site Patient ID:?[id number]. Site :?[id number] Study:?CT-Chest PE 95CC ISOVUE 370-07/24/2023 2:31:28 PM Ordering Physician:VALE Final Report: Indication: Hypoxia, cough and elevated D-dimer Technique: Volumetric multidetector CT images of the chest were obtained after the administration of IV contrast. 95 cc Isovue 370 low osmolar intravenous contrast Comparison: None available. Findings: The thoracic inlet and thyroid gland are unremarkable. The thoracic aorta is nonaneurysmal. There is no central filling defect to suggest pulmonary embolism. There are mildly reactive mediastinal and hilar lymph nodes. There is moderate central bronchial thickening with mucoid impaction of the puixd-xsihdra-tbty-left lower lobe bronchi. There is mild centrilobular and paraseptal emphysematous change of the upper greater than lower lobes with basilar atelectasis and parenchymal scarring. There is developing dense airspace opacity in the vrqhb-wpqzwxc-ujxz-left lung bases. Demonstration of a 6.8 millimeter pulmonary nodule in the peripheral right lung base seen on series 9, image 33. The partially visualized upper abdominal viscera are within normal limits. The thoracic vertebral body heights remain intact alignment without significant degenerative change or acute osseous abnormality. Impression: Moderate central bronchial thickening with mucoid impaction of the lower lobe bronchi with associated developing airspace opacities in the hmugg-qyezljd-qzbu-left lower lobes commensurate with developing multifocal infiltrates. Please note that all CT scans at this facility use dose modulation, iterative reconstruction, and/or weight-based dosing when appropriate to reduce radiation dose to as low as reasonably achievable. Dictated by Tripp Eubanks MD @ 07/24/2023 2:49:19 PM Signed by:?Tripp Eubanks MD @07/24/2023 2:49:19 PM (Electronic Signature)
[2023-07-24] MEDS: 0.9 % SODIUM CHLORIDE 1000 ml 1,000 ML IV (14:30)
[2023-07-24] MEDS: cefTRIAXone 1 GM in 0.9 % SODIUM CHLORIDE Mini-bag 100 ML IVPB (15:17)
== END 2023-07-24 15:58 | disposition home or self-care (01) ==
PROVIDERS: Emergency Provider Family Medicine
DX: J44.9 Chronic obstructive pulmonary disease, unspecified (principal); J18.9 Pneumonia, unspecified organism; R91.1 Solitary pulmonary nodule
CPT/HCPCS: 36415; 71045; 71275; 80048; 80076; 82077; 82803; 83880; 85025; 85379; 86140; 87040; 87449; 87631; 87899; 94640; 96365; 99284; 99285; J0696; J7030; Q9967